=== PATIENT | female | born 1990 | race African-American/Black ===

== ENCOUNTER 2016-12-04 11:09 | Emergency (ER) | payer MEDICAID, OTHER ==
[2016-12-04 11:25] VITALS: BP 123/64
--- NOTE | 2016-12-04 11:59 | EDM.PDOC ---
ED HPI Trauma - General Chief Complaint: Lower Extremity Injury/Pain Stated Complaint: Right ankle injury Time Seen by Provider: 12/04/16 11:50 Source: Reports: Patient, RN notes reviewed History Limitations: Reports: No limitations - History of Present Illness INITIAL COMMENTS - FREE TEXT/NARRATIVE: 26 year old female presents to the ED with 1 week history of medial right ankle/foot pain and bruising. She slammed her foot in a car door about 1 week ago. She has continued pain that does not seem to be getting better. She is able to only partially bear weight due to pain. She has not taken any pain medications. No numbness or tingling. No additional injuries. OBGYN is Dr. Martinez. She is reportedly approximately 28 weeks gestation. Allergies/ADRs: Allergies No Known Allergies Allergy (Verified 12/04/16 11:25) Home Medications: Ambulatory Orders . 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: Social & Family History - Family History Family Medical History: Noncontributory - Tobacco Use Smoking Status *Q: Never Smoker Used Tobacco, but Quit: Yes Month Tobacco Last Used: 3 years ago Second Hand Smoke Exposure: No - Caffeine Use Caffeine Use: Reports: None - Recreational Drug Use Recreational Drug Use: No Recreational Drug Type: Reports: Marijuana/Hashish Recreational Drug Use Frequency: Monthly Recreational Drug Last Use: 3 weeks ago - Living Situation & Occupation Living situation: Reports: single Occupation: unemployed Review of Systems - Review of Systems Review Of Systems: See Below Musculoskeletal: Reports: foot pain, joint pain Skin: Reports: bruising Neurological: Reports: No Symptoms. Denies: Numbness, Tingling, Weakness Trauma Exam - Physical Exam Exam: See Below Exam Limited By: No limitations General Appearance: Reports: alert, WD/WN, no apparent distress Respiratory Exam: Reports: no respiratory distress, lungs clear Cardiovascular: Reports: regular rate, rhythm Extremities: Reports: bony-point tenderness (medial malleolous and mid-foot), pain with movement, unable to bear weight, other (bruising to medial malleolous and medial mid-foot) Neurologic: Reports: no motor/sensory deficits, alert Course - Vital Signs Last Recorded V/S: Last Vital Signs Temp 97.7 F 12/04/16 11:21 Pulse 71 12/04/16 11:21 Resp 18 12/04/16 11:21 BP 123/64 12/04/16 11:21 Pulse Ox 98 12/04/16 11:21 - Orders/Labs/Meds Orders: Active Orders 24 hr Category Date Time Status Ankle Min 3V Rt [CR] Stat Exams 12/04/16 11:58 Taken Foot 2V Rt [CR] Stat Exams 12/04/16 11:59 Taken - Re-Assessments/Exams Free Text/Narrative Re-Assessment/Exam: Discussed risk versus benefit of x-rays considering the patient is . She elected to have x-rays. senior environmental technician notified and will take appropriate precautions. X-rays of the right foot and ankle reviewed by myself and Dr. Kendrick. No acute bony abnormalities appreciated. Radiologist report pending. Departure - Departure Time of Disposition: 12:16 Disposition: Home, Self-Care 01 Condition: good Clinical Impression: Foot contusion Qualifiers: Encounter type: initial encounter Laterality: right Qualified Code(s): S90.31XA - Contusion of right foot, initial encounter Ankle contusion Qualifiers: Encounter type: initial encounter Laterality: right Qualified Code(s): S90.01XA - Contusion of right ankle, initial encounter Instructions: Contusion, [id number] Referrals: Franki Martinez MD [Primary Care Provider] - Forms: ED Department Discharge Additional Instructions: Rest, ice and elevate Tylenol 650mg every 4-6 hours as needed for pain Follow-up in our [facility] this week for recheck Weight bearing as tolerated - My Orders Last 24 Hours: My Active Orders 12/04/16 11:58 Ankle Min 3V Rt [CR] Stat 12/04/16 11:59 Foot 2V Rt [CR] Stat - Assessment/Plan Last 24 Hours: My Active Orders 12/04/16 11:58 Ankle Min 3V Rt [CR] Stat 12/04/16 11:59 Foot 2V Rt [CR] Stat
--- NOTE | 2016-12-05 10:34 | CR ---
Right foot: Two views of the right foot were obtained. Comparison: No previous foot study. Joint spaces are preserved. No calcaneal spurs are seen. No fracture or other abnormality is appreciated. Impression: 1. No abnormality is identified on two-view right foot study. Diagnostic code #1
--- NOTE | 2016-12-05 10:34 | CR ---
Right ankle: Four views of the right ankle were obtained. Comparison: No previous study. Ankle mortise is symmetric. Mild soft tissue swelling is seen. No acute fracture or other abnormality is appreciated. Impression: 1. Soft tissue swelling. No bony abnormality is identified on right ankle exam. Diagnostic code #2
== END 2016-12-04 12:48 | disposition home or self-care (01) ==
LOC: JD.ED 11:09
DX: O9A.213 Injury, poisoning and certain other consequences of external causes complicating pregnancy, third trimester (principal); S90.31XA Contusion of right foot, initial encounter; S90.01XA Contusion of right ankle, initial encounter; Z87.891 Personal history of nicotine dependence; W22.8XXA Striking against or struck by other objects, initial encounter; Z3A.28 28 weeks gestation of pregnancy
CPT/HCPCS: 73610-26-RT; 73610-RT; 73620-26-RT; 73620-RT; 99282; 99283; 99284

== ENCOUNTER 2017-02-19 08:07 | Inpatient (IN) | payer MEDICAID, SELFPAY ==
[2017-02-19] MEDS ORDERED: Sodium Chloride 0.9% 10 ML Syringe FLUSH PRN (08:18)
[2017-02-19] MEDS ORDERED: Nalbuphine 20 MG/1 ML Amp IVPUSH PRN (08:18)
[2017-02-19] MEDS ORDERED: Ondansetron 4 MG/2 ML SDV IVPUSH PRN (08:18)
[2017-02-19] MEDS: Ampicillin 1 GM in Sodium Chloride 0.9% 100 ML IV SCH ×2 (08:30→09:00)
[2017-02-19] MEDS ORDERED: Lactated Ringers 1,000 ML IV SCH (08:30)
[2017-02-19] MEDS ORDERED: Ampicillin 1 GM in Sodium Chloride 0.9% 100 ML IV SCH ×2 (08:30→12:30)
[2017-02-19] MEDS ORDERED: Oxytocin/Lactated Ringers 10 UNIT/1,000 ML BAG IV SCH (08:30)
--- NOTE | 2017-02-19 08:58 | PCM.LDHP ---
L&D History of Present Illness - General Date of Service: 02/19/17 Admit Problem/Dx: Patient Status Order with Admit Dx/Problem 02/19/17 08:18 Patient Status [ADT] Routine Admission Diagnosis/Problem Admission Diagnosis/Problem Normal labor - History of Present Illness Introduction:: Called at 8:33 by RN to notify me patient arrived and ready for delivery. Rapid shortly after my arrival for this female at 39w1. - Related Data Allergies/Adverse Reactions: Allergies Allergy/AdvReac Type Severity Reaction Status Date / Time No Known Allergies Allergy Verified 02/19/17 08:18 Home Medications: Home Meds . 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: Social & Family History - Family History Family Medical History: Noncontributory - Tobacco Use Smoking Status *Q: Never Smoker Used Tobacco, but Quit: Yes Month Tobacco Last Used: 3 years ago Second Hand Smoke Exposure: No - Caffeine Use Caffeine Use: Reports: None - Recreational Drug Use Recreational Drug Use: No Recreational Drug Type: Reports: Marijuana/Hashish Recreational Drug Use Frequency: Monthly Recreational Drug Last Use: 3 weeks ago - Living Situation & Occupation Living situation: Reports: Single Occupation: Unemployed H&P Review of Systems - Review of Systems: Review Of Systems: See Below General: Reports: No Symptoms HEENT: Reports: No Symptoms Pulmonary: Reports: No Symptoms Cardiovascular: Reports: No Symptoms Gastrointestinal: Reports: No Symptoms Genitourinary: Reports: No Symptoms Musculoskeletal: Reports: No Symptoms Skin: Reports: No Symptoms Psychiatric: Reports: No Symptoms Neurological: Reports: No Symptoms Hematologic/Lymphatic: Reports: No Symptoms Immunologic: Reports: No Symptoms L&D Exam - Exam Exam: See Below - Vital Signs Weight: 77.111 kg - OB Specific Contraction Intensity: Moderate Movement: Active Heart Tones: Present Heart Rate (FHR) Variability: Moderate (6-25 bmp) Presentation: Vertex - Davison Score Davison Score Effacement: >80% Davison Score Dilation: > 5 cm - Exam General: Alert, Oriented HEENT: PERRLA, Conjunctiva Clear, EACs Clear, EOMI, Hearing Intact, Mucosa Moist & [place], Nares Patent, Normal Nasal Septum, Posterior Pharynx Clear, TMs Clear Neck: Supple, Trachea Midline Lungs: Clear to Auscultation, Normal Respiratory Effort Cardiovascular: Regular Rate, Regular Rhythm GI/Abdominal Exam: Normal Bowel Sounds, Soft, Non-Tender, No Organomegaly, No Distention, No Abnormal Bruit, No Mass, Pelvis Stable Rectal Exam: Normal Exam, Normal Rectal Tone Genitourinary: Normal external exam, Normal bimanual exam, Normal speculum exam Back Exam: Normal Inspection, Full Range of Motion Extremities: Normal Inspection, Normal Range of Motion, Non-Tender, No Pedal Edema, Normal Capillary Refill Skin: Warm, Dry, Intact Neurological: Cranial Nerves Intact, Reflexes Equal Bilateral Psychiatric: Alert, Normal Affect, Normal Mood - Patient Data Lab Results Last 24 hrs: Laboratory Results - last 24 hr 02/19/17 Range/Units 08:30 WBC 9.78 (3.98-10.04) K/mm3 RBC 4.59 (3.98-5.22) M/mm3 Hgb 13.3 (11.2-15.7) gm/L Hct 40.0 (34.1-44.9) % MCV 87.1 (79.4-94.8) fl MCH 29.0 (25.6-32.2) pg MCHC 33.3 (32.2-35.5) g/dl RDW Std Deviation 42.9 (36.4-46.3) fL Plt Count 201 (182-369) K/mm3 MPV 10.5 (9.4-12.3) fl Neut % (Auto) 69.4 (34.0-71.1) % Lymph % (Auto) 20.8 (19.3-51.7) % [place] % (Auto) 9.2 (4.7-12.5) % Eos % (Auto) 0.2 L (0.7-5.8) Baso % (Auto) 0.1 (0.1-1.2) % Neut # (Auto) 6.79 H (1.56-6.13) K/mm3 Lymph # (Auto) 2.03 (1.18-3.74) K/mm3 [place] # (Auto) 0.90 H (0.24-0.36) K/mm3 Eos # (Auto) 0.02 L (0.04-0.36) K/mm3 Baso # (Auto) 0.01 (0.01-0.08) K/mm3 Result Diagrams: 02/19/17 08:30 Problem List Initiated/Reviewed/Updated: Yes Orders Last 24hrs: Active Orders 24 hr Category Date Time Status Patient Status [ADT] Routine ADT 02/19/17 08:18 Active Activity as Tolerated [RC] PFP Care 02/19/17 08:18 Active Communication Order [RC] ASDIRECTED Care 02/19/17 08:18 Active Heart Tones [RC] ASDIRECTED Care 02/19/17 08:19 Active Notify Provider [RC] PFP Care 02/19/17 08:18 Active Notify Provider [RC] PRN Care 02/19/17 08:18 Active Peripheral IV Care [RC] . DIRECTED Care 02/19/17 08:19 Active Vital Signs [RC] PER UNIT ROUTINE Care 02/19/17 08:18 Active Ampicillin 1 gm Med 02/19/17 08:30 Active Sodium Chloride 0.9% [Normal Saline] 100 ml IV Q15M Ampicillin 1 gm Med 02/19/17 12:30 Active Sodium Chloride 0.9% [Normal Saline] 100 ml IV Q4H Lactated Ringers [Ringers, Lactated] 1,000 ml Med 02/19/17 08:30 Active IV ASDIRECTED Nalbuphine [Nubain] Med 02/19/17 08:18 Active 10 mg IVPUSH Q2H PRN Ondansetron [Zofran] Med 02/19/17 08:18 Active 4 mg IVPUSH Q4H PRN Oxytocin/Lactated Ringers [Pitocin in LR 10 Units/1,000 Med 02/19/17 08:30 Active ML] 10 unit in 1,000 ml IV .CONTINUOUS Sodium Chloride 0.9% [Saline Flush] Med 02/19/17 08:18 Active 10 ml FLUSH ASDIRECTED PRN Electronic Heart Tones Ext w TOCO [WOMSER] Oth 02/19/17 08:18 Ordered Routine Electronic Heart Tones Internal [WOMSER] Per Unit Ot 02/19/17 08:18 Ordered Routine Peripheral IV Insertion Adult [OM.PC] Routine Oth 02/19/17 08:18 Ordered Resuscitation Status Routine Resus Stat 02/19/17 08:18 Ordered Medication Orders Lactated Ringer's (Ringers, Lactated) 1,000 mls @ 100 mls/hr IV ASDIRECTED YOUNG Oxytocin/Lactated Ringer's (Pitocin In Lr 10 Units/1,000 Ml) 10 unit in 1,000 mls @ 500 mls/hr IV .CONTINUOUS YOUNG PRN Reason: Protocol Ampicillin Sodium 1 gm/ Sodium (Chloride) 100 mls @ 200 mls/hr IV Q15M YOUNG Stop: 02/19/17 08:59 Ampicillin Sodium 1 gm/ Sodium (Chloride) 100 mls @ 200 mls/hr IV Q4H YOUNG Nalbuphine HCl (Nubain) 10 mg IVPUSH Q2H PRN PRN Reason: Pain (moderate 4-6) Ondansetron HCl (Zofran) 4 mg IVPUSH Q4H PRN PRN Reason: Nausea/Vomiting Sodium Chloride (Saline Flush) 10 ml FLUSH ASDIRECTED PRN PRN Reason: Keep Vein Open Assessment/Plan Comment:: Precipitous . GBS positive s/p one dose antibiotics. Doing well.
[2017-02-19] MEDS ORDERED: Docusate Sodium 100 MG Cap PO PRN (09:15)
[2017-02-19] MEDS ORDERED: Lanolin 100% Cream 7 GM Tube TOP PRN (09:15)
[2017-02-19] MEDS ORDERED: Benzocaine/Menthol 20%-0.5% Spray 56 GM Canister TOP PRN (09:15)
[2017-02-19] MEDS ORDERED: Witch Hazel Medicated Pads 100/Jar TOP PRN (09:15)
[2017-02-19] MEDS ORDERED: Diphtheria,Pertussis(Acell),Tetanus Vaccine 0.5 ML SDV IM ONE (13:43)
[2017-02-19] MEDS: Ibuprofen 600 MG Tab PO PRN ×2 (15:06→20:50)
--- NOTE | 2017-02-21 09:06 | PCM.PNPP ---
- General Info Date of Service: 02/20/17 Functional Status: Reports: Pain Controlled - Review of Systems General: Reports: No Symptoms HEENT: Reports: No Symptoms Pulmonary: Reports: No Symptoms Cardiovascular: Reports: No Symptoms Gastrointestinal: Reports: No Symptoms Genitourinary: Reports: No Symptoms Musculoskeletal: Reports: No Symptoms Skin: Reports: No Symptoms Neurological: Reports: No Symptoms Psychiatric: Reports: No Symptoms - General Info Date of Service: 02/20/17 - Patient Data Vital Signs - Most Recent: Last Vital Signs Temp 37.2 C 02/21/17 02:22 Pulse 59 L 02/21/17 02:22 Resp 16 02/21/17 02:22 BP 139/72 02/21/17 02:22 Pulse Ox 97 02/21/17 02:22 Weight - Most Recent: 77.111 kg I&O - Last 24 Hours: Intake & Output 02/20/17 02/21/17 02/21/17 22:59 06:59 14:59 Intake Total 360 Balance 360 Med Orders - Current: Current Medications Benzocaine/Menthol (Dermoplast Pain Relief [place]) 0 gm TOP ASDIRECTED PRN PRN Reason: Perineal Comfort Measure Docusate Sodium (Colace) 100 mg PO BID PRN PRN Reason: Constipation Emollient Ointment (Lansinoh Hpa) 0 gm TOP ASDIRECTED PRN PRN Reason: Sore Nipples Ibuprofen (Motrin) 600 mg PO Q6H PRN PRN Reason: Mild pain or fever Last Admin: 02/19/17 20:50 Dose: 600 mg Witch [place] (Tucks) 1 pad TOP ASDIRECTED PRN PRN Reason: Hemorrhoid pain Discontinued Medications Diphtheria/Tetanus/Acell Pertussis (Adacel) 0.5 ml IM .ONCE ONE Stop: 02/19/17 13:44 Last Admin: 02/20/17 13:35 Dose: 0.5 ml Ampicillin Sodium 1 gm/ Sodium (Chloride) 100 mls @ 200 mls/hr IV Q4H YOUNG Lactated Ringer's (Ringers, Lactated) 1,000 mls @ 100 mls/hr IV ASDIRECTED YOUNG Last Admin: 02/19/17 10:00 Dose: 100 mls/hr Oxytocin/Lactated Ringer's (Pitocin In Lr 10 Units/1,000 Ml) 10 unit in 1,000 mls @ 500 mls/hr IV .CONTINUOUS YOUNG PRN Reason: Protocol Last Admin: 02/19/17 10:01 Dose: 500 mls/hr Ampicillin Sodium 1 gm/ Sodium (Chloride) 100 mls @ 200 mls/hr IV Q15M YOUNG Stop: 02/19/17 08:59 Last Admin: 02/19/17 09:00 Dose: 200 mls/hr Ampicillin Sodium 1 gm/ Sodium (Chloride) 100 mls @ 200 mls/hr IV Q4H YOUNG Nalbuphine HCl (Nubain) 10 mg IVPUSH Q2H PRN PRN Reason: Pain (moderate 4-6) Ondansetron HCl (Zofran) 4 mg IVPUSH Q4H PRN PRN Reason: Nausea/Vomiting Sodium Chloride (Saline Flush) 10 ml FLUSH ASDIRECTED PRN PRN Reason: Keep Vein Open - Infant Interaction Disposition, : [place] at Bedside Support Person: Significant Other - Recovery Exam Fundal Tone: Firm Fundal Level: 1 Fingerbreadths Below Umbilicus Fundal Placement: Midline Lochia Amount: Small Lochia Color: Rubra/Red Perineum Description: Intact, Minimal Bruising/Swelling Episiotomy/Laceration: None Bladder Status: Voiding Urinary Elimination: Voided - Exam General: Alert, Oriented HEENT: Pupils Equal Neck: Supple Lungs: Clear to Auscultation, Normal Respiratory Effort Cardiovascular: Regular Rate, Regular Rhythm GI/Abdominal Exam: Normal Bowel Sounds, Soft, Non-Tender, No Organomegaly, No Distention, No Abnormal Bruit, No Mass, Pelvis Stable Extremities: Normal Inspection, Normal Range of Motion, No Pedal Edema, Normal Capillary Refill Skin: Warm, Dry, Intact Wound/Incisions: Healing Well Neurological: No New Focal Deficit Psy/Mental Status: Alert, Normal Affect, Normal Mood - Problem List Review Problem List Initiated/Reviewed/Updated: Yes - My Orders Last 24 Hours: My Active Orders 02/20/17 08:12 Consult to Reconcilement Clerk [CONS] Routine 02/20/17 09:15 Heat Therapy [OM.PC] PRN 02/21/17 09:04 Ready for Discharge [RC] PER UNIT ROUTINE - Assessment Assessment:: Term delivery. GBS positive so home tomorrow. - Plan Plan:: Precipitous . GBS positive s/p one dose antibiotics. Doing well.
--- NOTE | 2017-02-21 09:07 | PCM.DCSUM1 ---
Discharge Summary - Discharge Data Discharge Date: 02/21/17 Discharge Disposition: Home, Self-Care 01 Condition: Good - Patient Summary/Data Consults: Consultations 02/20/17 08:12 Consult to Manager Nursing [CONS] Routine - Patient Instructions Diet: Usual Diet as Tolerated Activity: No Strenuous Activities Driving: May Drive Today Showering/Bathing: May Shower Wound/Incision Care: Keep Operative Site/Wound Site Clean and Dry Notify Provider of: Fever, Increased Pain, Swelling and Redness, Drainage, Nausea and/or Vomiting - Discharge Plan Home Medications: Home Meds . [No Known Home Meds] 12/04/16 [History] - Discharge Summary/Plan Comment DC Time >30 min.: No - General Info Date of Service: 02/21/17 Functional Status: Reports: Pain Controlled - Review of Systems General: Reports: No Symptoms HEENT: Reports: No Symptoms Pulmonary: Reports: No Symptoms Cardiovascular: Reports: No Symptoms Gastrointestinal: Reports: No Symptoms Genitourinary: Reports: No Symptoms Musculoskeletal: Reports: No Symptoms Skin: Reports: No Symptoms Neurological: Reports: No Symptoms Psychiatric: Reports: No Symptoms - Patient Data Vitals - Most Recent: Last Vital Signs Temp 37.2 C 02/21/17 02:22 Pulse 59 L 02/21/17 02:22 Resp 16 02/21/17 02:22 BP 139/72 02/21/17 02:22 Pulse Ox 97 02/21/17 02:22 Weight - Most Recent: 77.111 kg I&O - Last 24 hours: Intake & Output 02/20/17 02/21/17 02/21/17 22:59 06:59 14:59 Intake Total 360 Balance 360 Med Orders - Current: Current Medications Benzocaine/Menthol (Dermoplast Pain Relief [place]) 0 gm TOP ASDIRECTED PRN PRN Reason: Perineal Comfort Measure Docusate Sodium (Colace) 100 mg PO BID PRN PRN Reason: Constipation Emollient Ointment (Lansinoh Hpa) 0 gm TOP ASDIRECTED PRN PRN Reason: Sore Nipples Ibuprofen (Motrin) 600 mg PO Q6H PRN PRN Reason: Mild pain or fever Last Admin: 02/19/17 20:50 Dose: 600 mg Witch [place] (Tucks) 1 pad TOP ASDIRECTED PRN PRN Reason: Hemorrhoid pain Discontinued Medications Diphtheria/Tetanus/Acell Pertussis (Adacel) 0.5 ml IM .ONCE ONE Stop: 02/19/17 13:44 Last Admin: 02/20/17 13:35 Dose: 0.5 ml Ampicillin Sodium 1 gm/ Sodium (Chloride) 100 mls @ 200 mls/hr IV Q4H YOUNG Lactated Ringer's (Ringers, Lactated) 1,000 mls @ 100 mls/hr IV ASDIRECTED [facility] Last Admin: 02/19/17 10:00 Dose: 100 mls/hr Oxytocin/Lactated Ringer's (Pitocin In Lr 10 Units/1,000 Ml) 10 unit in 1,000 mls @ 500 mls/hr IV .CONTINUOUS YOUNG PRN Reason: Protocol Last Admin: 02/19/17 10:01 Dose: 500 mls/hr Ampicillin Sodium 1 gm/ Sodium (Chloride) 100 mls @ 200 mls/hr IV Q15M [facility] Stop: 02/19/17 08:59 Last Admin: 02/19/17 09:00 Dose: 200 mls/hr Ampicillin Sodium 1 gm/ Sodium (Chloride) 100 mls @ 200 mls/hr IV Q4H [facility] Nalbuphine HCl (Nubain) 10 mg IVPUSH Q2H PRN PRN Reason: Pain (moderate 4-6) Ondansetron HCl (Zofran) 4 mg IVPUSH Q4H PRN PRN Reason: Nausea/Vomiting Sodium Chloride (Saline Flush) 10 ml FLUSH ASDIRECTED PRN PRN Reason: Keep Vein Open - Exam General: Reports: Alert, Oriented HEENT: Reports: Pupils Equal, Pupils Reactive, EOMI, Mucous Membr. Moist/[place] Neck: Reports: Supple Lungs: Reports: Clear to Auscultation, Normal Respiratory Effort Cardiovascular: Reports: Regular Rate, Regular Rhythm GI/Abdominal Exam: Normal Bowel Sounds, Soft, Non-Tender, No Organomegaly, No Distention, No Abnormal Bruit, No Mass, Pelvis Stable Rectal (Female) Exam: Normal Exam, Normal Rectal Tone Back Exam: Reports: Normal Inspection, Full Range of Motion Extremities: Normal Inspection, Normal Range of Motion, Non-Tender, No Pedal Edema, Normal Capillary Refill Skin: Reports: Warm, Dry, Intact Wound/Incisions: Reports: Healing Well Neurological: Reports: No New Focal Deficit Psy/Mental Status: Reports: Alert, Normal Affect, Normal Mood *Q Meaningful Use (DIS) - VTE *Q VTE Criteria *Q: - Stroke *Q Stroke Criteria *Q: - AMI *Q AMI Criteria *Q:
[2017-02-21 10:05] VITALS: BP 123/68
== END 2017-02-21 10:45 | disposition home or self-care (01) | DRG 775 ==
LOC: JD.OBCHECK 08:07 → JD.OB 08:09 → JD.OBCHECK 08:17 → JD.OB 08:18 → OBSVTOIN 08:43 → JD.OB 08:43
PROVIDERS: ADMIT Obstetrics & Gynecology; ATTEND Obstetrics & Gynecology
PROC: 10E0XZZ Delivery of Products of Conception, External Approach (ICD-10-PCS; principal; 2017-02-19)
PROC: 0W8NXZZ Division of Female Perineum, External Approach (ICD-10-PCS; 2017-02-19)
PROC: 3E0234Z Introduction of Serum, Toxoid and Vaccine into Muscle, Percutaneous Approach (ICD-10-PCS; 2017-02-20)
DX: O62.3 Precipitate labor (principal); O99.824 Streptococcus B carrier state complicating childbirth; Z3A.39 39 weeks gestation of pregnancy; Z37.0 Single live birth; Z23 Encounter for immunization
CPT/HCPCS: 36415; 85025; 90715; A9270-GY; J0290; J2590; J7030; J7120

== ENCOUNTER 2018-04-11 10:28 | Emergency (ER) | payer MEDICAID ==
[2018-04-11 10:48] VITALS: BP 121/71
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
== END 2018-04-11 13:11 | disposition home or self-care (01) ==
LOC: JD.ED 10:28
DX: O26.91 Pregnancy related conditions, unspecified, first trimester (principal); R10.9 Unspecified abdominal pain; Z3A.01 Less than 8 weeks gestation of pregnancy
CPT/HCPCS: 36415; 80053; 81001; 81025; 85007; 85027; 86140; 99283

== ENCOUNTER 2018-10-20 10:23 | Inpatient (IN) | payer MEDICAID ==
[~2018-10-20 10:23] MED LIST: Bupivacaine 0.25% 10 ML SDV ONE
[2018-10-20] MEDS ORDERED: Ondansetron 4 MG/2 ML SDV IVPUSH PRN (10:54)
[2018-10-20] MEDS ORDERED: Ampicillin 2 GM in Sodium Chloride 0.9% 100 ML IV ONE (10:54)
[2018-10-20] MEDS ORDERED: Lidocaine 1% 50 ML MDV INJECT ONE (10:54)
[2018-10-20] MEDS ORDERED: Sodium Chloride 0.9% 10 ML Syringe FLUSH PRN (10:54)
[2018-10-20] MEDS ORDERED: Nalbuphine 20 MG/ML 1 ML Syringe IVPUSH PRN (10:54)
[2018-10-20] MEDS ORDERED: Oxytocin/Lactated Ringers 10 UNIT/1,000 ML BAG IV SCH ×2 (11:00)
[2018-10-20] MEDS: Lactated Ringers 1,000 ML IV SCH ×4 (12:02→15:21)
--- NOTE | 2018-10-20 12:13 | PCM.LDHP ---
L&D History of Present Illness - General Date of Service: 10/20/18 Admit Problem/Dx: Patient Status Order with Admit Dx/Problem 10/20/18 10:55 Patient Status [ADT] Routine Admission Diagnosis/Problem Admission Diagnosis/Problem Source of Information: Patient History Limitations: Reports: No Limitations - History of Present Illness Introduction:: 28 year old female at 39w1d here with painful contractions. Cervix 5 cm. Improves with: Reports: None Worsens with: Reports: None Associated Symptoms: Reports: N - Related Data Allergies/Adverse Reactions: Allergies Allergy/AdvReac Type Severity Reaction Status Date / Time No Known Allergies Allergy Verified 10/20/18 11:27 Home Medications: Home Meds Albuterol Sulfate [Albuterol Sulfate Hfa] 1 puff INH Q4H PRN 10/20/18 [History] Vits #93/Iron Fum/FA [ Formula Tablet] 1 tab PO DAILY 10/20/18 [History] Past Medical History - Past Health History Medical/Surgical History: Denies Medical/Surgical History Respiratory History: Reports: Asthma Other Respiratory History: uses albuterol inhaler 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: - Past Surgical History HEENT Surgical History: Reports: Oral Surgery, Tonsillectomy Social & Family History - Family History Family Medical History: Noncontributory - Tobacco Use Smoking Status *Q: Former Smoker Used Tobacco, but Quit: Yes Month/Year Tobacco Last Used: 06/2017 - Caffeine Use Caffeine Use: Reports: Coffee, Soda - Recreational Drug Use Recreational Drug Use: No - Living Situation & Occupation Living situation: Reports: Single Occupation: Unemployed H&P Review of Systems - Review of Systems: Review Of Systems: See Below General: Reports: No Symptoms HEENT: Reports: No Symptoms Pulmonary: Reports: No Symptoms Cardiovascular: Reports: No Symptoms Gastrointestinal: Reports: No Symptoms Genitourinary: Reports: No Symptoms Musculoskeletal: Reports: No Symptoms Skin: Reports: No Symptoms Psychiatric: Reports: No Symptoms Neurological: Reports: No Symptoms Hematologic/Lymphatic: Reports: No Symptoms Immunologic: Reports: No Symptoms L&D Exam - Exam Exam: See Below - Vital Signs Vital Signs: Last Vital Signs Temp 36.6 C 10/20/18 10:54 Pulse 82 10/20/18 10:54 Resp 18 10/20/18 10:54 BP 138/74 10/20/18 10:54 Pulse Ox Weight: 96.071 kg - OB Specific Fundal Height In cm: 39 Contraction Intensity: Mild to Moderate Movement: Active Heart Tones: Present Heart Tones per Min: 155 Heart Rate (FHR) Variability: Moderate (6-25 bmp) Presentation: Vertex - Davison Score Davison Score Cervix Position: Midposition Davison Score Consistency: Medium Davison Score Effacement: >80% Davison Score Dilation: 3-4 cm Davison Score Infant's Station: -2 Davison Score Total: 8 - Exam General: Alert, Oriented HEENT: PERRLA, Conjunctiva Clear, EACs Clear, EOMI, Hearing Intact, Mucosa Moist & [place], Nares Patent, Normal Nasal Septum, Posterior Pharynx Clear, TMs Clear Neck: Supple, Trachea Midline Lungs: Clear to Auscultation, Normal Respiratory Effort Cardiovascular: Regular Rate, Regular Rhythm GI/Abdominal Exam: Normal Bowel Sounds, Soft, Non-Tender, No Organomegaly, No Distention, No Abnormal Bruit, No Mass, Pelvis Stable Rectal Exam: Normal Exam Back Exam: Normal Inspection, Full Range of Motion Extremities: Normal Inspection, Normal Range of Motion, Non-Tender, No Pedal Edema, Normal Capillary Refill Skin: Warm, Dry, Intact Neurological: Cranial Nerves Intact, Reflexes Equal Bilateral Psychiatric: Alert, Normal Affect, Normal Mood - Patient Data Lab Results Last 24 hrs: Laboratory Results - last 24 hr 10/20/18 10/20/18 Range/Units 11:20 11:26 WBC 12.09 H (3.98-10.04) K/mm3 RBC 4.29 (3.98-5.22) M/mm3 Hgb 11.6 (11.2-15.7) gm/L Hct 36.7 (34.1-44.9) % MCV 85.5 (79.4-94.8) fl MCH 27.0 (25.6-32.2) pg MCHC 31.6 L (32.2-35.5) g/dl RDW Std Deviation 42.4 (36.4-46.3) fL Plt Count 196 (182-369) K/mm3 MPV 10.4 (9.4-12.3) fl Neut % (Auto) 75.2 H (34.0-71.1) % Lymph % (Auto) 13.4 L (19.3-51.7) % [place] % (Auto) 10.7 (4.7-12.5) % Eos % (Auto) 0.2 L (0.7-5.8) Baso % (Auto) 0.1 (0.1-1.2) % Neut # (Auto) 9.10 H (1.56-6.13) K/mm3 Lymph # (Auto) 1.62 (1.18-3.74) K/mm3 [place] # (Auto) 1.29 H (0.24-0.36) K/mm3 Eos # (Auto) 0.02 L (0.04-0.36) K/mm3 Baso # (Auto) 0.01 (0.01-0.08) K/mm3 Urine Opiates Screen Negative (FQBDPR=660) Ur Buprenorphine Scrn Negative (CUTOFF=10) Ur Oxycodone Screen Negative (APT6RM=589) Urine Methadone Screen Negative (NIXDLH=105) Ur Propoxyphene Screen Negative (WXPSZA=538) Ur Barbiturates Screen Negative (TKFUZO=308) Ur Tricyclics Screen Negative (XMNDPM=944) Ur Phencyclidine Scrn Negative (CUTOFF=25) Ur Amphetamine Screen Negative (RPJMKB=099) U Methamphetamines Scrn Negative (IBZILU=012) U Benzodiazepines Scrn Negative (XKEPSL=847) U Cocaine Metab Screen Negative (RMQJJK=748) U Marijuana (THC) Screen Presumptive positive H (CUTOFF=50) Result Diagrams: 10/20/18 11:26 Problem List Initiated/Reviewed/Updated: Yes Orders Last 24hrs: Active Orders 24 hr Category Date Time Status Patient Status [ADT] Routine ADT 10/20/18 10:55 Active Activity as Tolerated [RC] PFP Care 10/20/18 10:54 Active Communication Order [RC] ASDIRECTED Care 10/20/18 10:54 Active Heart Tones [RC] ASDIRECTED Care 10/20/18 10:55 Active Non Stress Test [RC] PER UNIT ROUTINE Care 10/20/18 10:54 Active Notify Provider [RC] PFP Care 10/20/18 10:54 Active Notify Provider [RC] PRN Care 10/20/18 10:54 Active Peripheral IV Care [RC] . DIRECTED Care 10/20/18 10:55 Active Vital Signs [RC] PER UNIT ROUTINE Care 10/20/18 10:54 Active Regular Diet [DIET] Diet 10/20/18 Lunch Active CANNABINOID (THC) CONFIRM, UR Stat Lab 10/20/18 11:20 Received RAPID PLASMA REAGIN,RPR [CHEM] Routine Lab 10/20/18 11:26 Received Ampicillin 1 gm Med 10/20/18 15:00 Active Sodium Chloride 0.9% [Normal Saline] 100 ml IV Q4H Lactated Ringers [Ringers, Lactated] 1,000 ml Med 10/20/18 11:00 Active IV ASDIRECTED Nalbuphine [Nubain] Med 10/20/18 10:54 Active 10 mg IVPUSH Q2H PRN Ondansetron [Zofran] Med 10/20/18 10:54 Active 4 mg IVPUSH Q4H PRN Oxytocin/Lactated Ringers [Pitocin in LR 10 Units/1,000 Med 10/20/18 11:00 Active ML] 10 unit in 1,000 ml IV .CONTINUOUS Oxytocin/Lactated Ringers [Pitocin in LR 10 Units/1,000 Med 10/20/18 11:00 Active ML] 10 unit in 1,000 ml IV TITRATE Sodium Chloride 0.9% [Saline Flush] Med 10/20/18 10:54 Active 10 ml FLUSH ASDIRECTED PRN Electronic Heart Tones Ext w TOCO [WOMSER] Oth 10/20/18 10:54 Ordered Routine Electronic Heart Tones Internal [WOMSER] Per Unit Oth 10/20/18 10:54 Ordered Routine Peripheral IV Insertion Adult [OM.PC] Routine Oth 10/20/18 10:54 Ordered Resuscitation Status Routine Resus Stat 10/20/18 10:54 Ordered Medication Orders Ampicillin Sodium 1 gm/ Sodium (Chloride) 100 mls @ 200 mls/hr IV Q4H YOUNG Lactated Ringer's (Ringers, Lactated) 1,000 mls @ 100 mls/hr IV ASDIRECTED YOUNG Last Admin: 10/20/18 12:02 Dose: 100 mls/hr Oxytocin/Lactated Ringer's (Pitocin In Lr 10 Units/1,000 Ml) 10 unit in 1,000 mls @ 500 mls/hr IV .CONTINUOUS YOUNG Oxytocin/Lactated Ringer's (Pitocin In Lr 10 Units/1,000 Ml) 10 unit in 1,000 mls @ 12 mls/hr IV TITRATE YOUNG; Protocol Nalbuphine HCl (Nubain) 10 mg IVPUSH Q2H PRN PRN Reason: pain Ondansetron HCl (Zofran) 4 mg IVPUSH Q4H PRN PRN Reason: Nausea/Vomiting Sodium Chloride (Saline Flush) 10 ml FLUSH ASDIRECTED PRN PRN Reason: Keep Vein Open Assessment/Plan Comment:: Term labor. GBS positive. AROM clear fluid. Anticipate . Prior rapid labors
[2018-10-20] MEDS ORDERED: diphenhydrAMINE 50 MG/ML SDV IVPUSH PRN (14:05)
[2018-10-20] MEDS ORDERED: fentaNYL 100 MCG/2 ML SDV EPIDUR PRN (14:05)
[2018-10-20] MEDS ORDERED: ePHEDrine 50 MG/ML SDV IVPUSH PRN (14:05)
[2018-10-20] MEDS ORDERED: fentaNYL/Bupivacaine-NS 2 MCG/ML-0.125%/PF 100 ML Bag EPIDUR SCH (14:15)
--- NOTE | 2018-10-20 14:36 | PCM.PREANE ---
Preanesthetic Assessment - Anesthesia/Transfusion/Family Hx Anesthesia History: Prior Anesthesia Without Reaction Family History of Anesthesia Reaction: No Transfusion History: No Prior Transfusion(s) - Review of Systems General: No Symptoms Pulmonary: No Symptoms Cardiovascular: No Symptoms Gastrointestinal: Abdominal Pain (contractions) - Physical Assessment Pulse: 84 O2 Sat by Pulse Oximetry: 99 Respiratory Rate: 18 Blood Pressure: 134/64 Temperature: 36.3 C Vital Signs: Last Vital Signs Temp 36.6 C 10/20/18 10:54 Pulse 82 10/20/18 10:54 Resp 18 10/20/18 10:54 BP 138/74 10/20/18 10:54 Pulse Ox Height: 1.63 m Weight: 96.071 kg ASA Class: 2 Mental Status: Alert & Oriented x3 Airway Class: Mallampati = 1 Dentition: Reports: Normal Dentition Thyro-Mental Finger Breadths: 3 Mouth Opening Finger Breadths: 3 ROM/Head Extension: Full Lungs: Clear to Auscultation, Normal Respiratory Effort Cardiovascular: Regular Rate, Regular Rhythm - Lab Values: Laboratory Last Values WBC 12.09 K/mm3 (3.98-10.04) H 10/20/18 11:26 RBC 4.29 M/mm3 (3.98-5.22) 10/20/18 11:26 Hgb 11.6 gm/L (11.2-15.7) 10/20/18 11:26 Hct 36.7 % (34.1-44.9) 10/20/18 11:26 MCV 85.5 fl (79.4-94.8) 10/20/18 11:26 MCH 27.0 pg (25.6-32.2) 10/20/18 11:26 MCHC 31.6 g/dl (32.2-35.5) L 10/20/18 11:26 RDW Std Deviation 42.4 fL (36.4-46.3) 10/20/18 11:26 Plt Count 196 K/mm3 (182-369) 10/20/18 11:26 MPV 10.4 fl (9.4-12.3) 10/20/18 11:26 Neut % (Auto) 75.2 % (34.0-71.1) H 10/20/18 11:26 Lymph % (Auto) 13.4 % (19.3-51.7) L 10/20/18 11: [place] % (Auto) 10.7 % (4.7-12.5) 10/20/18 11: Eos % (Auto) 0.2 (0.7-5.8) L 10/20/18 11: Baso % (Auto) 0.1 % (0.1-1.2) 10/20/18 11: Neut # (Auto) 9.10 K/mm3 (1.56-6.13) H 10/20/18 11: Lymph # (Auto) 1.62 K/mm3 (1.18-3.74) 10/20/18 11: [place] # (Auto) 1.29 K/mm3 (0.24-0.36) H 10/20/18 11: Eos # (Auto) 0.02 K/mm3 (0.04-0.36) L 10/20/18 11: Baso # (Auto) 0.01 K/mm3 (0.01-0.08) 10/20/18 11:26 Urine Opiates Screen Negative (QSRHHS=320) 10/20/18 11:20 Ur Buprenorphine Scrn Negative (CUTOFF=10) 10/20/18 11:20 Ur Oxycodone Screen Negative (XSB4LP=252) 10/20/18 11:20 Urine Methadone Screen Negative (BJVPTC=869) 10/20/18 11:20 Ur Propoxyphene Screen Negative (BOYHEJ=598) 10/20/18 11:20 Ur Barbiturates Screen Negative (BJBTDM=275) 10/20/18 11:20 Ur Tricyclics Screen Negative (HHNTBJ=913) 10/20/18 11:20 Ur Phencyclidine Scrn Negative (CUTOFF=25) 10/20/18 11:20 Ur Amphetamine Screen Negative (UNCVQO=924) 10/20/18 11:20 U Methamphetamines Scrn Negative (AWVTKZ=495) 10/20/18 11:20 U Benzodiazepines Scrn Negative (MMJQBN=077) 10/20/18 11:20 U Cocaine Metab Screen Negative (FLXGMO=078) 10/20/18 11:20 U Marijuana (THC) Screen Presumptive positive (CUTOFF=50) H 10/20/18 11:20 - Allergies Allergies/Adverse Reactions: Allergies Allergy/AdvReac Type Severity Reaction Status Date / Time No Known Allergies Allergy Verified 10/20/18 11:27 - Anesthesia Plan Pre-Op Medication Ordered: None - Acknowledgements Anesthesia Type Planned: Epidural Pt an Appropriate Candidate for the Planned Anesthesia: Yes Alternatives and Risks of Anesthesia Discussed w Pt/Guardian: Yes Pt/Guardian Understands and Agrees with Anesthesia Plan: Yes PreAnesthesia Questionnaire - Past Health History Medical/Surgical History: Denies Medical/Surgical History Respiratory History: Reports: Asthma Other Respiratory History: uses albuterol inhaler Gastrointestinal History: Reports: GERD 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: - Past Surgical History HEENT Surgical History: Reports: Oral Surgery, Tonsillectomy - SUBSTANCE USE Smoking Status *Q: Former Smoker Tobacco Use Within Last Twelve Months: No Recreational Drug Use History: No - HOME MEDS Home Medications: Home Meds Albuterol Sulfate [Albuterol Sulfate Hfa] 1 puff INH Q4H PRN 10/20/18 [History] Vits #93/Iron Fum/FA [ Formula Tablet] 1 tab PO DAILY 10/20/18 [History] - CURRENT (IN HOUSE) MEDS Current Meds: Current Medications Diphenhydramine HCl (Benadryl) 25 mg IVPUSH Q6H PRN PRN Reason: Itching Ephedrine Sulfate (Ephedrine Sulfate) 5 mg IVPUSH ASDIRECTED PRN PRN Reason: HYPOTENTSION Fentanyl (Sublimaze) 100 mcg EPIDUR Q3H PRN PRN Reason: Pain Last Admin: 10/20/18 14:29 Dose: 100 mcg Fentanyl/Bupivacaine HCl (Keexoudv-Ugngk-Wc 2 Mcg/Ml-0.125%) 100 ml EPIDUR ASDIRECTED [facility] Last Admin: 10/20/18 14:30 Dose: 100 ml Ampicillin Sodium 1 gm/ Sodium (Chloride) 100 mls @ 200 mls/hr IV Q4H YOUNG Lactated Ringer's (Ringers, Lactated) 1,000 mls @ 100 mls/hr IV ASDIRECTED [facility] Last Admin: 10/20/18 13:38 Dose: 100 mls/hr Oxytocin/Lactated Ringer's (Pitocin In Lr 10 Units/1,000 Ml) 10 unit in 1,000 mls @ 500 mls/hr IV .CONTINUOUS YOUNG Oxytocin/Lactated Ringer's (Pitocin In Lr 10 Units/1,000 Ml) 10 unit in 1,000 mls @ 12 mls/hr IV TITRATE YOUNG; Protocol Nalbuphine HCl (Nubain) 10 mg IVPUSH Q2H PRN PRN Reason: pain Ondansetron HCl (Zofran) 4 mg IVPUSH Q4H PRN PRN Reason: Nausea/Vomiting Sodium Chloride (Saline Flush) 10 ml FLUSH ASDIRECTED PRN PRN Reason: Keep Vein Open Discontinued Medications Ampicillin Sodium 2 gm/ Sodium (Chloride) 100 mls @ 200 mls/hr IV ONETIME ONE Stop: 10/20/18 11:23 Last Admin: 10/20/18 11:02 Dose: 200 mls/hr Lidocaine HCl (Xylocaine 1%) 50 ml INJECT ONETIME ONE Stop: 10/20/18 10:55
[2018-10-20] MEDS: Ampicillin 1 GM in Sodium Chloride 0.9% 100 ML IV SCH ×2 (14:37→18:42)
--- NOTE | 2018-10-20 19:10 | PCM.SN ---
- Free Text/Narrative Note: Stage I - Patient progressed in active labor at 6 cm dilated. Progressed slowly to complete with overall reassuring heart tones. Epidural for anesthesia with some decelerations after. Stage II - of viable male infant at 1853, weight 3260g, APGARS 8/9. Head delivered in a controlled manner over intact perineum, body and shoulders atraumatically. Short cord clamped and cut. Stage III - of intact placenta. 3vc. No laceration. eBL 300
[2018-10-20] MEDS ORDERED: Witch Hazel Medicated Pads 40/Jar TOP PRN (19:20)
[2018-10-20] MEDS ORDERED: Docusate Sodium 100 MG Cap PO PRN (19:20)
[2018-10-20] MEDS ORDERED: Lanolin 100% Cream 7 GM Tube TOP PRN (19:20)
[2018-10-20] MEDS: Ibuprofen 600 MG Tab PO PRN (20:22)
--- NOTE | 2018-10-21 04:43 | PCM.PNPP ---
- General Info Date of Service: 10/21/18 Functional Status: Reports: Pain Controlled - Review of Systems General: Reports: No Symptoms HEENT: Reports: No Symptoms Pulmonary: Reports: No Symptoms Cardiovascular: Reports: No Symptoms Gastrointestinal: Reports: No Symptoms Genitourinary: Reports: No Symptoms Musculoskeletal: Reports: No Symptoms Skin: Reports: No Symptoms Neurological: Reports: No Symptoms Psychiatric: Reports: No Symptoms - General Info Date of Service: 10/21/18 - Patient Data Vital Signs - Most Recent: Last Vital Signs Temp 37.0 C 10/21/18 02:58 Pulse 78 10/21/18 02:58 Resp 14 10/21/18 02:58 BP 127/64 10/21/18 02:58 Pulse Ox 97 10/21/18 02:58 Weight - Most Recent: 96.071 kg I&O - Last 24 Hours: Intake & Output 10/20/18 10/20/18 10/21/18 14:59 22:59 06:59 Intake Total 4500 Balance 4500 Lab Results - Last 24 Hours: Laboratory Results - last 24 hr 10/20/18 10/20/18 10/20/18 Range/Units 11:20 11:26 11:26 WBC 12.09 H (3.98-10.04) K/mm3 RBC 4.29 (3.98-5.22) M/mm3 Hgb 11.6 (11.2-15.7) gm/L Hct 36.7 (34.1-44.9) % MCV 85.5 (79.4-94.8) fl MCH 27.0 (25.6-32.2) pg MCHC 31.6 L (32.2-35.5) g/dl RDW Std Deviation 42.4 (36.4-46.3) fL Plt Count 196 (182-369) K/mm3 MPV 10.4 (9.4-12.3) fl Neut % (Auto) 75.2 H (34.0-71.1) % Lymph % (Auto) 13.4 L (19.3-51.7) % [place] % (Auto) 10.7 (4.7-12.5) % Eos % (Auto) 0.2 L (0.7-5.8) Baso % (Auto) 0.1 (0.1-1.2) % Neut # (Auto) 9.10 H (1.56-6.13) K/mm3 Lymph # (Auto) 1.62 (1.18-3.74) K/mm3 [place] # (Auto) 1.29 H (0.24-0.36) K/mm3 Eos # (Auto) 0.02 L (0.04-0.36) K/mm3 Baso # (Auto) 0.01 (0.01-0.08) K/mm3 Urine Opiates Screen Negative (RATAGN=504) Ur Buprenorphine Scrn Negative (CUTOFF=10) Ur Oxycodone Screen Negative (RJN9DT=658) Urine Methadone Screen Negative (KUSHNK=127) Ur Propoxyphene Screen Negative (PRKAZE=704) Ur Barbiturates Screen Negative (BTHVPK=005) Ur Tricyclics Screen Negative (SMPBXP=349) Ur Phencyclidine Scrn Negative (CUTOFF=25) Ur Amphetamine Screen Negative (KQIIJQ=859) U Methamphetamines Scrn Negative (VHOELN=491) U Benzodiazepines Scrn Negative (IRREML=186) U Cocaine Metab Screen Negative (GSURIL=822) U Marijuana (THC) Screen Presumptive positive H (CUTOFF=50) RPR Non-reactive (NONREACTIVE) Med Orders - Current: Current Medications Docusate Sodium (Colace) 100 mg PO BID PRN PRN Reason: Constipation Emollient Ointment (Lansinoh Hpa) 0 gm TOP ASDIRECTED PRN PRN Reason: Sore Nipples Ibuprofen (Motrin) 600 mg PO Q6H PRN PRN Reason: Mild pain or fever Last Admin: 10/20/18 20:22 Dose: 600 mg Witch Oneyda (Tucks) 1 pad TOP ASDIRECTED PRN PRN Reason: Pain Discontinued Medications Diphenhydramine HCl (Benadryl) 25 mg IVPUSH Q6H PRN PRN Reason: Itching Ephedrine Sulfate (Ephedrine Sulfate) 5 mg IVPUSH ASDIRECTED PRN PRN Reason: HYPOTENTSION Last Admin: 10/20/18 15:21 Dose: 5 mg Fentanyl (Sublimaze) 100 mcg EPIDUR Q3H PRN PRN Reason: Pain Last Admin: 10/20/18 14:29 Dose: 100 mcg Fentanyl/Bupivacaine HCl (Xhhxylml-Kdblg-Zj 2 Mcg/Ml-0.125%) 100 ml EPIDUR ASDIRECTED YOUNG Last Admin: 10/20/18 14:30 Dose: 100 ml Ampicillin Sodium 2 gm/ Sodium (Chloride) 100 mls @ 200 mls/hr IV ONETIME ONE Stop: 10/20/18 11:23 Last Admin: 10/20/18 11:02 Dose: 200 mls/hr Ampicillin Sodium 1 gm/ Sodium (Chloride) 100 mls @ 200 mls/hr IV Q4H YOUNG Last Admin: 10/20/18 18:42 Dose: 200 mls/hr Lactated Ringer's (Ringers, Lactated) 1,000 mls @ 100 mls/hr IV ASDIRECTED YOUNG Last Admin: 10/20/18 15:21 Dose: 100 mls/hr Oxytocin/Lactated Ringer's (Pitocin In Lr 10 Units/1,000 Ml) 10 unit in 1,000 mls @ 500 mls/hr IV .CONTINUOUS YOUNG Last Admin: 10/20/18 18:26 Dose: 500 mls/hr Oxytocin/Lactated Ringer's (Pitocin In Lr 10 Units/1,000 Ml) 10 unit in 1,000 mls @ 12 mls/hr IV TITRATE YOUNG; Protocol Last Titration: 10/20/18 18:40 Dose: 3 munits/min, 18 mls/hr Lidocaine HCl (Xylocaine 1%) 50 ml INJECT ONETIME ONE Stop: 10/20/18 10:55 Last Admin: 10/20/18 19:20 Dose: Not Given Nalbuphine HCl (Nubain) 10 mg IVPUSH Q2H PRN PRN Reason: pain Ondansetron HCl (Zofran) 4 mg IVPUSH Q4H PRN PRN Reason: Nausea/Vomiting Sodium Chloride (Saline Flush) 10 ml FLUSH ASDIRECTED PRN PRN Reason: Keep Vein Open - Infant Interaction Disposition, : in Room with Family Interaction: Holding Infant Support Person: Significant Other - Exam General: Alert, Oriented HEENT: Pupils Equal Neck: Supple Lungs: Clear to Auscultation, Normal Respiratory Effort Cardiovascular: Regular Rate, Regular Rhythm GI/Abdominal Exam: Normal Bowel Sounds, Soft, Non-Tender, No Organomegaly, No Distention, No Abnormal Bruit, No Mass, Pelvis Stable Extremities: Normal Inspection, Normal Range of Motion, Non-Tender, No Pedal Edema, Normal Capillary Refill Skin: Warm Neurological: No New Focal Deficit Psy/Mental Status: Alert, Normal Affect, Normal Mood - Problem List Review Problem List Initiated/Reviewed/Updated: Yes - My Orders Last 24 Hours: My Active Orders 10/20/18 10:54 Resuscitation Status Routine 10/20/18 10:55 Heart Tones [RC] ASDIRECTED 10/20/18 11:20 CANNABINOID (THC) CONFIRM, UR Stat 10/20/18 19:20 Activity as Tolerated [RC] PER UNIT ROUTINE Vital Signs [RC] 21,03,09,15 Docusate Sodium [Colace] 100 mg PO BID PRN Ibuprofen [Motrin] 600 mg PO Q6H PRN Lanolin [Lansinoh HPA] See Dose Instructions TOP ASDIRECTED PRN Witch Oneyda [Tucks] 1 pad TOP ASDIRECTED PRN Assess Lochia [WOMSER] Per Unit Routine Assess Uterine Involution [WOMSER] Per Unit Routine Breast Pump [WOMSER] Per Unit Routine Heat Therapy [OM.PC] PRN Medication Administration Instruction [OM.PC] Routine Perineal Care [OM.PC] Per Unit Routine Sitz Bath [OM.PC] Per Unit Routine 10/21/18 19:20 Heat Therapy [OM.PC] PRN - Assessment Assessment:: PPD1 s/p uncomplicated . Doing well. Probable discharge tomorrow
[2018-10-21] MEDS: Ibuprofen 600 MG Tab PO PRN ×2 (07:25→12:46)
--- NOTE | 2018-10-21 07:46 | PCM48HPAN ---
Post Anesthesia Note - EVALUATION WITHIN 48HRS OF ANESTHETIC Vital Signs in Normal Range: Yes Patient Participated in Evaluation: Yes Respiratory Function Stable: Yes Airway Patent: Yes Cardiovascular Function Stable: Yes Hydration Status Stable: Yes Pain Control Satisfactory: Yes Nausea and Vomiting Control Satisfactory: Yes Mental Status Recovered: Yes Pulse Rate: 78 Resp Rate: 14 Temperature: 37.0 C Blood Pressure: 127/64 - COMMENTS/OBSERVATIONS Free Text/Narrative:: no anesthesia complications noted
[2018-10-22] MEDS: Ibuprofen 600 MG Tab PO PRN ×2 (00:02→07:41)
[2018-10-22] MEDS ORDERED: Acetaminophen 325 MG Tab PO PRN (00:46)
--- NOTE | 2018-10-22 07:46 | PCM.DCSUM1 ---
Discharge Summary - Hospital Course Diagnosis: Stroke: No - Discharge Data Discharge Date: 10/22/18 Discharge Disposition: Home, Self-Care 01 Condition: Good - Patient Summary/Data Hospital Course: Admitted in active labor. of viable infant. Discharge in good condition on PPD2. Unremarkable course. - Patient Instructions Diet: Usual Diet as Tolerated Activity: No Strenuous Activities Driving: May Drive Today Showering/Bathing: May Shower Wound/Incision Care: Keep Operative Site/Wound Site Clean and Dry Notify Provider of: Fever, Swelling and Redness, Drainage, Nausea and/or Vomiting - Discharge Plan *PRESCRIPTION DRUG MONITORING PROGRAM REVIEWED*: No *COPY OF PRESCRIPTION DRUG MONITORING REPORT IN PATIENT TIMUR: No Home Medications: Home Meds Albuterol Sulfate [Albuterol Sulfate Hfa] 1 puff INH Q4H PRN 10/20/18 [History] Vits #93/Iron Fum/FA [ Formula Tablet] 1 tab PO DAILY 10/20/18 [History] Referrals: Franki Martinez MD [Physician] - (2 weeks) - Discharge Summary/Plan Comment DC Time >30 min.: No - General Info Date of Service: 10/22/18 Functional Status: Reports: Pain Controlled - Review of Systems General: Reports: No Symptoms HEENT: Reports: No Symptoms Pulmonary: Reports: No Symptoms Cardiovascular: Reports: No Symptoms Gastrointestinal: Reports: No Symptoms Genitourinary: Reports: No Symptoms Musculoskeletal: Reports: No Symptoms Skin: Reports: No Symptoms Neurological: Reports: No Symptoms Psychiatric: Reports: No Symptoms - Patient Data Vitals - Most Recent: Last Vital Signs Temp 36.5 C 10/22/18 04:06 Pulse 62 10/22/18 04:06 Resp 16 10/22/18 04:06 BP 135/71 10/22/18 04:06 Pulse Ox 97 10/22/18 04:06 Weight - Most Recent: 96.071 kg I&O - Last 24 hours: Intake & Output 10/21/18 10/22/18 10/22/18 22:59 06:59 14:59 Intake Total 180 Balance 180 Med Orders - Current: Current Medications Docusate Sodium (Colace) 100 mg PO BID PRN PRN Reason: Constipation Emollient Ointment (Lansinoh Hpa) 0 gm TOP ASDIRECTED PRN PRN Reason: Sore Nipples Ibuprofen (Motrin) 600 mg PO Q6H PRN PRN Reason: Mild pain or fever Last Admin: 10/22/18 07:41 Dose: 600 mg Witch Oneyda (Tucks) 1 pad TOP ASDIRECTED PRN PRN Reason: Pain Last Admin: 10/22/18 00:03 Dose: 1 pad Discontinued Medications Diphenhydramine HCl (Benadryl) 25 mg IVPUSH Q6H PRN PRN Reason: Itching Ephedrine Sulfate (Ephedrine Sulfate) 5 mg IVPUSH ASDIRECTED PRN PRN Reason: HYPOTENTSION Last Admin: 10/20/18 15:21 Dose: 5 mg Fentanyl (Sublimaze) 100 mcg EPIDUR Q3H PRN PRN Reason: Pain Last Admin: 10/20/18 14:29 Dose: 100 mcg Fentanyl/Bupivacaine HCl (Qxekynkk-Bmtyd-Ps 2 Mcg/Ml-0.125%) 100 ml EPIDUR ASDIRECTED YOUNG Last Admin: 10/20/18 14:30 Dose: 100 ml Ampicillin Sodium 2 gm/ Sodium (Chloride) 100 mls @ 200 mls/hr IV ONETIME ONE Stop: 10/20/18 11:23 Last Admin: 10/20/18 11:02 Dose: 200 mls/hr Ampicillin Sodium 1 gm/ Sodium (Chloride) 100 mls @ 200 mls/hr IV Q4H YOUNG Last Admin: 10/20/18 18:42 Dose: 200 mls/hr Lactated Ringer's (Ringers, Lactated) 1,000 mls @ 100 mls/hr IV ASDIRECTED YOUNG Last Admin: 10/20/18 15:21 Dose: 100 mls/hr Oxytocin/Lactated Ringer's (Pitocin In Lr 10 Units/1,000 Ml) 10 unit in 1,000 mls @ 500 mls/hr IV .CONTINUOUS YOUNG Last Admin: 10/20/18 18:26 Dose: 500 mls/hr Oxytocin/Lactated Ringer's (Pitocin In Lr 10 Units/1,000 Ml) 10 unit in 1,000 mls @ 12 mls/hr IV TITRATE YOUNG; Protocol Last Titration: 10/20/18 18:40 Dose: 3 munits/min, 18 mls/hr Lidocaine HCl (Xylocaine 1%) 50 ml INJECT ONETIME ONE Stop: 10/20/18 10:55 Last Admin: 10/20/18 19:20 Dose: Not Given Nalbuphine HCl (Nubain) 10 mg IVPUSH Q2H PRN PRN Reason: pain Ondansetron HCl (Zofran) 4 mg IVPUSH Q4H PRN PRN Reason: Nausea/Vomiting Sodium Chloride (Saline Flush) 10 ml FLUSH ASDIRECTED PRN PRN Reason: Keep Vein Open - Exam General: Reports: Alert, Oriented HEENT: Reports: Pupils Equal, Pupils Reactive, EOMI, Mucous Membr. Moist/[place]: Reports: Supple Lungs: Reports: Clear to Auscultation, Normal Respiratory Effort Cardiovascular: Reports: Regular Rate, Regular Rhythm GI/Abdominal Exam: Normal Bowel Sounds, Soft, Non-Tender, No Organomegaly, No Distention, No Abnormal Bruit, No Mass, Pelvis Stable Rectal (Female) Exam: Normal Exam, Normal Rectal Tone Back Exam: Reports: Normal Inspection, Full Range of Motion Extremities: Normal Inspection, Normal Range of Motion, Non-Tender, No Pedal Edema, Normal Capillary Refill Skin: Reports: Warm, Dry, Intact Wound/Incisions: Reports: Healing Well Neurological: Reports: No New Focal Deficit Psy/Mental Status: Reports: Alert, Normal Affect, Normal Mood
[2018-10-22 10:51] VITALS: BP 116/72
== END 2018-10-22 14:15 | disposition home or self-care (01) | DRG 807 ==
LOC: JD.OB 10:23 → JD.OBCHECK 10:23 → JD.OB 10:55 → OBSVTOIN 18:53 → JD.OB 18:54
PROVIDERS: ADMIT Obstetrics & Gynecology; ATTEND Obstetrics & Gynecology
PROC: 10E0XZZ Delivery of Products of Conception, External Approach (ICD-10-PCS; principal; 2018-10-20)
PROC: 10907ZC Drainage of Amniotic Fluid, Therapeutic from Products of Conception, Via Natural or Artificial Opening (ICD-10-PCS; principal; 2018-10-20)
PROC: 00HU33Z Insertion of Infusion Device into Spinal Canal, Percutaneous Approach (ICD-10-PCS; 2018-10-20)
PROC: 3E0R3BZ Introduction of Anesthetic Agent into Spinal Canal, Percutaneous Approach (ICD-10-PCS; 2018-10-20)
DX: O99.52 Diseases of the respiratory system complicating childbirth (principal); Z37.0 Single live birth; Z3A.39 39 weeks gestation of pregnancy; J45.909 Unspecified asthma, uncomplicated; O99.824 Streptococcus B carrier state complicating childbirth; O99.62 Diseases of the digestive system complicating childbirth; K21.9 Gastro-esophageal reflux disease without esophagitis; O76 Abnormality in fetal heart rate and rhythm complicating labor and delivery; Z79.899 Other long term (current) drug therapy; Z87.891 Personal history of nicotine dependence
CPT/HCPCS: 01967; 36415; 51702; 59025; 59409; 80306; 85025; 86592; A9270-GY; G0480; J0290; J2590; J3010; J3490; J7030; J7120

== ENCOUNTER 2019-08-26 08:22 | Inpatient (IN) | payer MEDICAID ==
[2019-08-26] MEDS ORDERED: Lactated Ringers 2,000 ML ONE (08:24)
[2019-08-26] MEDS ORDERED: Oxytocin 10 Units/1 ML SDV ONE (08:24)
[2019-08-26] MEDS ORDERED: ceFAZolin 1 GM Vial ONE (08:24)
[2019-08-26] MEDS ORDERED: Ondansetron 4 MG/2 ML SDV ONE (08:24)
[2019-08-26] MEDS ORDERED: Ketorolac 30 MG/ML SDV ONE (08:24)
[2019-08-26] MEDS ORDERED: Morphine PF 10 MG/10 ML SDV ONE (08:25)
[2019-08-26] MEDS ORDERED: Propofol 200 MG/20 ML SDV ONE (08:26)
[2019-08-26] MEDS ORDERED: fentaNYL 250 MCG/5 ML SDV ONE (08:26)
[2019-08-26] MEDS ORDERED: Bupivacaine 0.5% 30 ML SDV ONE (08:26)
[2019-08-26] MEDS ORDERED: Succinylcholine/Normal Saline 100 MG/5 ML Syringe ONE ×2 (08:28→08:30)
--- NOTE | 2019-08-26 08:28 | PCM.LDHP ---
L&D History of Present Illness - General Date of Service: 08/26/19 Admit Problem/Dx: Admission Diagnosis/Problem Admission Diagnosis/Problem Source of Information: Patient History Limitations: Reports: No Limitations - History of Present Illness Introduction:: 28 Y/O presented to L&D with severe cramping and vaginal bleeding JANIS EGA 36w5d contractions and H/O fundal placenta and heavy bleeding. Exam cervix 6-7 cm, 100 % effaced, posterior and soft. Possible abriuptiuo placenta GBS positive. 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: - Past Surgical History HEENT Surgical History: Reports: Oral Surgery, Tonsillectomy Social & Family History - Family History Family Medical History: Noncontributory - Caffeine Use Caffeine Use: Reports: Coffee, Soda - Living Situation & Occupation Living situation: Reports: Single Occupation: Unemployed H&P Review of Systems - Review of Systems: Review Of Systems: See Below General: Reports: No Symptoms HEENT: Reports: No Symptoms Pulmonary: Reports: No Symptoms Cardiovascular: Reports: No Symptoms Gastrointestinal: Reports: Abdominal Pain, Other (vaginal bleeding) Genitourinary: Reports: No Symptoms Musculoskeletal: Reports: No Symptoms Skin: Reports: No Symptoms Psychiatric: Reports: No Symptoms Neurological: Reports: No Symptoms Hematologic/Lymphatic: Reports: No Symptoms Immunologic: Reports: No Symptoms L&D Exam - Exam Exam: See Below - OB Specific Contraction Intensity: Strong Movement: Active Heart Tones: Present Heart Tones per Min: 140 Heart Rate (FHR) Variability: Moderate (6-25 bmp) Presentation: Vertex - Davison Score Davison Score Cervix Position: Anterior Davison Score Consistency: Soft Davison Score Effacement: >80% Davison Score Dilation: > 5 cm Davison Score Infant's Station: +1, +2 Davison Score Total: 13 - Exam General: Alert, Oriented HEENT: Conjunctiva Clear, Mucosa Moist & [place] Neck: Supple, Trachea Midline Lungs: Clear to Auscultation, Normal Respiratory Effort Cardiovascular: Regular Rate, Regular Rhythm GI/Abdominal Exam: Normal Bowel Sounds Genitourinary: Normal external exam Extremities: Normal Inspection, Non-Tender, No Pedal Edema, Normal Capillary Refill Skin: Warm, Dry, Intact Psychiatric: Alert, Normal Affect, Normal Mood - Problem List (1) 36 weeks gestation of SNOMED Code(s): 35411710 ICD Code: Z3A.36 - 36 WEEKS GESTATION OF Status: Acute Current Visit: Yes (2) Antepartum bleeding, third trimester SNOMED Code(s): 621717029 ICD Code: O46.93 - ANTEPARTUM HEMORRHAGE, UNSPECIFIED, THIRD TRIMESTER Status: Acute Current Visit: Yes Problem List Initiated/Reviewed/Updated: No Assessment/Plan Comment:: section
[2019-08-26] MEDS ORDERED: Metoclopramide 10 MG/2 ML SDV ONE (08:29)
[2019-08-26] MEDS ORDERED: Citric Acid/Sodium Citrate Solution 30 ML Cup ONE (08:30)
[2019-08-26] MEDS ORDERED: Midazolam 1 MG/ML 2 ML SDV ONE (08:30)
[2019-08-26] MEDS ORDERED: Ketamine 500 mg/10 ML MDV ONE (08:31)
[2019-08-26] MEDS ORDERED: Ondansetron 4 MG/2 ML SDV IVPUSH PRN ×2 (08:46→08:56)
[2019-08-26] MEDS ORDERED: Metoclopramide 10 MG/2 ML SDV IVPUSH ONE (08:46)
[2019-08-26] MEDS ORDERED: Citric Acid/Sodium Citrate Solution 30 ML Cup PO ONE (08:46)
[2019-08-26] MEDS ORDERED: Sodium Chloride 0.9% 10 ML Syringe FLUSH PRN ×2 (08:46→11:47)
[2019-08-26] MEDS ORDERED: Nalbuphine 10 MG/ML Syringe IVPUSH PRN (08:46)
[2019-08-26] MEDS ORDERED: fentaNYL 100 MCG/2 ML SDV IVPUSH PRN (08:56)
[2019-08-26] MEDS ORDERED: HYDROmorphone 0.5 MG/0.5 ML Syringe IVPUSH PRN (08:56)
[2019-08-26] MEDS ORDERED: HYDROmorphone 0.5 MG/0.5 ML Syringe ONE (08:57)
[2019-08-26] MEDS ORDERED: Lactated Ringers 1,000 ML IV SCH (09:00)
[2019-08-26] MEDS ORDERED: Oxytocin/Lactated Ringers 20 UNIT/1,000 ML BAG IV SCH (09:00)
[2019-08-26] MEDS ORDERED: ceFAZolin 2 GM in Premix Bag 1 BAG IV ONE (09:00)
--- NOTE | 2019-08-26 09:29 | PCM.POSTAN ---
POST ANESTHESIA ASSESSMENT - MENTAL STATUS Mental Status: Other (Drowsy) - VITAL SIGNS Vital Signs: 0921 120/63 90 16 97% 99F - RESPIRATORY Respiratory Status: Respiratory Rate WNL, Airway Patent, O2 Saturation Stable, Supplemental Oxygen - CARDIOVASCULAR CV Status: Pulse Rate WNL, Blood Pressure Stable - GASTROINTESTINAL GI Status: No Symptoms - PAIN Pain Score: 0 - POST OP HYDRATION Hydration Status: Adequate & Stable
--- NOTE | 2019-08-26 09:34 | PCM.PREANE ---
Preanesthetic Assessment - Procedure Proposed Procedure: Stat Csection - Anesthesia/Transfusion/Family Hx Anesthesia History: Prior Anesthesia Without Reaction Family History of Anesthesia Reaction: No Transfusion History: No Prior Transfusion(s) - Review of Systems General: No Symptoms Pulmonary: No Symptoms Cardiovascular: No Symptoms Gastrointestinal: No Symptoms Neurological: No Symptoms - Physical Assessment NPO Status Date: 08/26/19 NPO Status Time: 12:30 Vital Signs: 98% 20 140/90 97 ASA Class: 2E Mental Status: Alert & Oriented x3 Airway Class: Mallampati = 1 Dentition: Reports: Broken Tooth/Teeth, Missing Tooth/Teeth Thyro-Mental Finger Breadths: 3 Mouth Opening Finger Breadths: 3 ROM/Head Extension: Full - Lab Values: Laboratory Last Values WBC 8.00 K/mm3 (3.98-10.04) 08/26/19 08:32 RBC 4.32 M/mm3 (3.98-5.22) 08/26/19 08:32 Hgb 11.7 gm/dl (11.2-15.7) 08/26/19 08:32 Hct 37.0 % (34.1-44.9) 08/26/19 08:32 MCV 85.6 fl (79.4-94.8) 08/26/19 08:32 MCH 27.1 pg (25.6-32.2) 08/26/19 08:32 MCHC 31.6 g/dl (32.2-35.5) L 08/26/19 08:32 RDW Std Deviation 42.7 fL (36.4-46.3) 08/26/19 08:32 Plt Count 197 K/mm3 (182-369) 08/26/19 08:32 MPV 10.5 fl (9.4-12.3) 08/26/19 08:32 Neut % (Auto) 60.2 % (34.0-71.1) 08/26/19 08:32 Lymph % (Auto) 27.8 % (19.3-51.7) 08/26/19 08:32 [place] % (Auto) 10.9 % (4.7-12.5) 08/26/19 08:32 Eos % (Auto) 0.6 (0.7-5.8) L 08/26/19 08:32 Baso % (Auto) 0.1 % (0.1-1.2) 08/26/19 08:32 Neut # (Auto) 4.82 K/mm3 (1.56-6.13) 08/26/19 08:32 Lymph # (Auto) 2.22 K/mm3 (1.18-3.74) 08/26/19 08:32 [place] # (Auto) 0.87 K/mm3 (0.24-0.36) H 08/26/19 08:32 Eos # (Auto) 0.05 K/mm3 (0.04-0.36) 08/26/19 08:32 Baso # (Auto) 0.01 K/mm3 (0.01-0.08) 08/26/19 08:32 Blood Type A POSITIVE 08/26/19 08:32 Gel Antibody Screen Negative 08/26/19 08:32 - Allergies Allergies/Adverse Reactions: Allergies Allergy/AdvReac Type Severity Reaction Status Date / Time No Known Allergies Allergy Verified 08/26/19 08:45 - Blood Blood Available: No - Acknowledgements Anesthesia Type Planned: General Anesthesia Pt an Appropriate Candidate for the Planned Anesthesia: Yes Alternatives and Risks of Anesthesia Discussed w Pt/Guardian: Yes Pt/Guardian Understands and Agrees with Anesthesia Plan: Yes PreAnesthesia Questionnaire - Past Health History Medical/Surgical History: Denies Medical/Surgical History Cardiovascular History: Reports: None Respiratory History: Reports: Asthma Other Respiratory History: uses albuterol inhaler Gastrointestinal History: Reports: GERD 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: : 6 Para: 5 - Past Surgical History HEENT Surgical History: Reports: Oral Surgery, Tonsillectomy - History Comment History Comment: vits- noted ecchymotic area left eye and small healing skin cut left cheek area and forehead - SUBSTANCE USE Tobacco Use Within Last Twelve Months: No Second Hand Smoke Exposure: Yes Days Per Week of Alcohol Use: 0 (none after ) - CURRENT (IN HOUSE) MEDS Current Meds: Current Medications Fentanyl (Sublimaze) 50 mcg IVPUSH Q5M PRN PRN Reason: Pain Stop: 08/26/19 12:00 Hydromorphone HCl (Dilaudid) 0.5 mg IVPUSH Q10M PRN PRN Reason: Pain (severe 7-10) Stop: 08/26/19 12:00 Lactated Ringer's (Ringers, Lactated) 1,000 mls @ 125 mls/hr IV ASDIRECTED [facility] Oxytocin/Lactated Ringer's (Pitocin In Lr 20 Units/1,000 Ml) 20 unit in 1,000 mls @ 500 mls/hr IV ASDIRECTED [facility] Nalbuphine HCl (Nubain) 10 mg IVPUSH Q2H PRN PRN Reason: Pain Ondansetron HCl (Zofran) 4 mg IVPUSH Q4H PRN PRN Reason: Nausea/Vomiting Ondansetron HCl (Zofran) 4 mg IVPUSH ONETIME PRN PRN Reason: Nausea/Vomiting Stop: 08/26/19 12:00 Sodium Chloride (Saline Flush) 10 ml FLUSH ASDIRECTED PRN PRN Reason: Keep Vein Open Discontinued Medications Bupivacaine HCl (Marcaine 0.5%) Confirm Administered Dose 30 ml .ROUTE .STK-MED ONE Stop: 08/26/19 08:27 Cefazolin Sodium (Ancef) Confirm Administered Dose 2 gm .ROUTE .STK-MED ONE Stop: 08/26/19 08:25 Citric Acid/Sodium Citrate (Bicitra Solution) Confirm Administered Dose 30 ml .ROUTE .STK-MED ONE Stop: 08/26/19 08:31 Citric Acid/Sodium Citrate (Bicitra Solution) 30 ml PO ONETIME ONE Stop: 08/26/19 08:47 Fentanyl (Sublimaze) Confirm Administered Dose 250 mcg .ROUTE .STK-MED ONE Stop: 08/26/19 08:27 Hydromorphone HCl (Dilaudid) Confirm Administered Dose 0.5 mg .ROUTE .STK-MED ONE Stop: 08/26/19 08:58 Lactated Ringer's (Ringers, Lactated) Confirm Administered Dose 2,000 mls @ as directed .ROUTE .STK-MED ONE Stop: 08/26/19 08:25 Cefazolin Sodium/Dextrose 2 gm (/ Premix) 50 mls @ 100 mls/hr IV ONETIME ONE Stop: 08/26/19 09:29 Ketamine HCl (Ketalar) Confirm Administered Dose 500 mg .ROUTE .STK-MED ONE Stop: 08/26/19 08:32 Ketorolac Tromethamine (Toradol) Confirm Administered Dose 30 mg .ROUTE .STK- MED ONE Stop: 08/26/19 08:25 Metoclopramide HCl (Reglan) Confirm Administered Dose 10 mg .ROUTE .STK-MED ONE Stop: 08/26/19 08:30 Metoclopramide HCl (Reglan) 10 mg IVPUSH ONETIME ONE Stop: 08/26/19 08:47 Midazolam HCl (Versed 1 Mg/Ml) Confirm Administered Dose 2 mg .ROUTE .STK-MED ONE Stop: 08/26/19 08:31 Morphine Sulfate (Duramorph Pf) Confirm Administered Dose 10 mg .ROUTE .STK-MED ONE Stop: 08/26/19 08:26 Ondansetron HCl (Zofran) Confirm Administered Dose 4 mg .ROUTE .STK-MED ONE Stop: 08/26/19 08:25 Oxytocin (Pitocin) Confirm Administered Dose 20 unit .ROUTE .STK-MED ONE Stop: 08/26/19 08:25 Propofol (Diprivan 20 Ml) Confirm Administered Dose 200 mg .ROUTE .STK-MED ONE Stop: 08/26/19 08:27 Succinylcholine Chloride (Succinylcholine In Ns Pf) Confirm Administered Dose 100 mg .ROUTE .STK-MED ONE Stop: 08/26/19 08:29 Succinylcholine Chloride (Succinylcholine In Ns Pf) Confirm Administered Dose 100 mg .ROUTE .STK-MED ONE Stop: 08/26/19 08:31
--- NOTE | 2019-08-26 09:36 | PCM.OPNOTE ---
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 surgery, decrease comorbidity and mortality Role of Steel Shot Header Operator: Asst. surgery, decrease comorbidity and mortality Fluid Replacement, Intraop: 1,900 Output, Urine Amount: 500 EBL in mLs: 1,500 Drain/Tube Comments:: baker Complications: None Condition: Good Free Text/Narrative:: Emergency section called at 0816 hrs. and baby delivered at 0842 hrs. Patient was transported to the operating room #1. SCDs in place and functioning prior surgery. Ancef 2 g given intravenously prior surgery. Baker catheter placed gravity drainage. Betadine prep draped in a sterile fashion. Timeout performed. Patient was placed under general anesthesia and a Pfannenstiel incision was made and care was sharp section to into the anterior fascia, peritoneal cavity entered without difficulty. Low segment transverse performed with delivery of the female liveborn is 0842 hrs. (incision made at 0841 hrs.) candle wrapper in attendance Dr. Ac. Weight 2920This note was created, at least in part, by the use of [employer] voice dictation system. Inadvertent typographical errors, due to software recognition problems, may exist. grams/ 6 pounds 7 ounces, Apgars 8/9. Cord blood collected from three- vessel cord. Placenta was removed manually and inspected and at approximately 10 -15% abruptio placenta at the marginal edge of the placenta. Endometrial cavity inspected sponge needle pack and asthma count correct times one. The uterine incision closed in 2 layers running locking suture of #0 Monocryl for the first layer and a horizontal imbricating suture for second layer. Additional figure-of -eight sutures taken in the right corner of the incision cause of arterial bleeding, and in the middle portion of the incision. Hemostasis was obtained. Tubes and ovaries were normal. Clots were cleaned from the gutters and cul-de- sac uterus replaced into the abdominal cavity. Uterine incision was inspected and additional [id number] suture placed for hemostasis at the uterine incision. Reinspection of the uterine incision showed no bleeding and the sponge needle asthma and sharp count correct the abdominal cavity was closed with #1 PDS running suture. Irrigation carried out in the subcutaneous tissue and the septated tissue was approximated with 3 sutures of 0 Monocryl. Skin was closed subcuticular suture of 3-0 Monocryl on Stiven needle. Dermabond Preneo applied. Clots were cleaned from the vagina at the end of the procedure and patient was transported postanesthesia care unit in satisfactory condition. No blood transfusions given during surgery. Toradol 30 mg given at the end of surgery. This note was created, at least in part, by the use of [employer] voice dictation system. Inadvertent typographical errors, due to software recognition problems, may exist.
[2019-08-26] MEDS ORDERED: Naloxone 0.4 MG/ML SDV IVPUSH PRN (11:47)
[2019-08-26] MEDS ORDERED: diphenhydrAMINE 50 MG/ML SDV IVPUSH PRN (11:47)
[2019-08-26] MEDS ORDERED: Docusate Sodium 100 MG Cap PO PRN (11:47)
[2019-08-26] MEDS ORDERED: Ondansetron 4 MG/2 ML SDV IV PRN (11:47)
[2019-08-26] MEDS ORDERED: ePHEDrine 50 MG/ML SDV IVPUSH PRN (11:47)
[2019-08-26] MEDS ORDERED: Acetaminophen/Codeine 300-30 MG Tab PO PRN ×2 (11:47)
[2019-08-26] MEDS ORDERED: Acetaminophen 325 MG Tab PO PRN (11:47)
[2019-08-26] MEDS ORDERED: Dextrose 5%-Lactated Ringers 1,000 ML IV SCH (11:47)
[2019-08-26] MEDS ORDERED: Acetaminophen/oxyCODONE 325-5 MG Tab PO PRN (11:59)
[2019-08-26] MEDS: Acetaminophen/oxyCODONE 325-5 MG Tab PO PRN ×3 (12:08→20:53)
[2019-08-26] MEDS: Simethicone 80 MG Tab.Chew PO SCH ×3 (13:12→21:00)
[2019-08-26] MEDS: Ketorolac 30 MG/ML SDV IVPUSH SCH ×2 (15:17→21:01)
[2019-08-26] MEDS: ceFAZolin 1 GM in Premix Bag 1 BAG IV SCH (16:50)
[2019-08-27] MEDS: ceFAZolin 1 GM in Premix Bag 1 BAG IV SCH (00:12)
[2019-08-27] MEDS: Acetaminophen/oxyCODONE 325-5 MG Tab PO PRN ×5 (03:30→21:49)
[2019-08-27] MEDS: Ketorolac 30 MG/ML SDV IVPUSH SCH (04:16)
--- NOTE | 2019-08-27 08:03 | PCM48HPAN ---
Post Anesthesia Note - EVALUATION WITHIN 48HRS OF ANESTHETIC Vital Signs in Normal Range: Yes Patient Participated in Evaluation: Yes Respiratory Function Stable: Yes Airway Patent: Yes Cardiovascular Function Stable: Yes Hydration Status Stable: Yes Pain Control Satisfactory: Yes Nausea and Vomiting Control Satisfactory: Yes Mental Status Recovered: Yes (no complaints- sitting up holding baby) Vital Signs: Last Vital Signs Temp 98.2 F 08/27/19 04:15 Pulse 66 08/27/19 04:15 Resp 16 08/27/19 04:15 BP 133/50 L 08/27/19 04:15 Pulse Ox 96 08/27/19 04:15
[2019-08-27] MEDS: Simethicone 80 MG Tab.Chew PO SCH ×4 (09:00→21:49)
--- NOTE | 2019-08-27 09:23 | PCM.SN ---
- Free Text/Narrative Note: Afebrile. Hemoglobin 8.0 consistent with what was expected from blood loss. No heavy vaginal bleeding uterus involuting normally incision normal no leg cramping.
[2019-08-27] MEDS: Ibuprofen 600 MG Tab PO PRN ×2 (10:02→20:41)
[2019-08-27] MEDS ORDERED: FLU Vacc QS2019-20(6MOS+)/PF 60 MCG/0.5 ML SYRINGE IM ONE (13:00)
[2019-08-28] MEDS: Acetaminophen/oxyCODONE 325-5 MG Tab PO PRN ×4 (02:04→14:06)
[2019-08-28] MEDS: Ibuprofen 600 MG Tab PO PRN (04:51)
[2019-08-28] MEDS: Simethicone 80 MG Tab.Chew PO SCH ×2 (08:10→14:05)
--- NOTE | 2019-08-28 08:38 | PCM.DCSUM1 ---
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 surgery, decrease comorbidity and mortality Role of Endless Belt Finisher: Asst. surgery, decrease comorbidity and mortality Fluid Replacement, Intraop: 1,900 Output, Urine Amount: 500 EBL in mLs: 1,500 Drain/Tube Comments:: baker Complications: None Condition: Good Free Text/Narrative:: Emergency section called at 0816 hrs. and baby delivered at 0842 hrs. Patient was transported to the operating room #1. SCDs in place and functioning prior surgery. Ancef 2 g given intravenously prior surgery. Baker catheter placed gravity drainage. Betadine prep draped in a sterile fashion. Timeout performed. Patient was placed under general anesthesia and a Pfannenstiel incision was made and care was sharp section to into the anterior fascia, peritoneal cavity entered without difficulty. Low segment transverse performed with delivery of the female liveborn is 0842 hrs. (incision made at 0841 hrs.) unhairing inspector in attendance Dr. Ac. Weight 2920This note was created, at least in part, by the use of [employer] voice dictation system. Inadvertent typographical errors, due to software recognition problems, may exist. grams/ 6 pounds 7 ounces, Apgars 8/9. Cord blood collected from three- vessel cord. Placenta was removed manually and inspected and at approximately 10 -15% abruptio placenta at the marginal edge of the placenta. Endometrial cavity inspected sponge needle pack and asthma count correct times one. The uterine incision closed in 2 layers running locking suture of #0 Monocryl for the first layer and a horizontal imbricating suture for second layer. Additional figure-of -eight sutures taken in the right corner of the incision cause of arterial bleeding, and in the middle portion of the incision. Hemostasis was obtained. Tubes and ovaries were normal. Clots were cleaned from the gutters and cul-de- sac uterus replaced into the abdominal cavity. Uterine incision was inspected and additional [id number] suture placed for hemostasis at the uterine incision. Reinspection of the uterine incision showed no bleeding and the sponge needle asthma and sharp count correct the abdominal cavity was closed with #1 PDS running suture. Irrigation carried out in the subcutaneous tissue and the septated tissue was approximated with 3 sutures of 0 Monocryl. Skin was closed subcuticular suture of 3-0 Monocryl on Stiven needle. Dermabond Preneo applied. Clots were cleaned from the vagina at the end of the procedure and patient was transported postanesthesia care unit in satisfactory condition. No blood transfusions given during surgery. Toradol 30 mg given at the end of surgery. This note was created, at least in part, by the use of [employer] voice dictation system. Inadvertent typographical errors, due to software recognition problems, may exist. HPI Initial Comments: [facility] Post-Op/Procedure Note Patient Name: MATIAS CRAMER Date of : 89 Patient Status: Inpatient Attending Provider: Franki Martinez Date: 08/26/19 09:22 Initialization Date: 08/26/19 09:22 - General Post-Op/Procedure Note Date of Surgery/Procedure: 08/26/19 Operative Procedure(s): Primary low segment transverse Pre Op Diagnosis: 36+ weeks, third trimester bleeding Post-Op Diagnosis: Same plus marginal abruptio placentae Anesthesia Technique: General ET Tube Primary Surgeon: Franki Martinez Secondary Surgeon: Hua Jones Anesthesia Provider: Mar Rodriguez Endless Belt Finisher: Chico Cummings (PAS) Reason Endless Belt Finisher Was Necessary: Asst. surgery, decrease comorbidity and mortality Role of Endless Belt Finisher: Asst. surgery, decrease comorbidity and mortality Fluid Replacement, Intraop: 1,900 Output, Urine Amount: 500 EBL in mLs: 1,500 Drain/Tube Comments:: baker Complications: None Condition: Good Free Text/Narrative:: Emergency section called at 0816 hrs. and baby delivered at 0842 hrs. Patient was transported to the operating room #1. SCDs in place and functioning prior surgery. Ancef 2 g given intravenously prior surgery. Baker catheter placed gravity drainage. Betadine prep draped in a sterile fashion. Timeout performed. Patient was placed under general anesthesia and a Pfannenstiel incision was made and care was sharp section to into the anterior fascia, peritoneal cavity entered without difficulty. Low segment transverse performed with delivery of the female liveborn is 0842 hrs. (incision made at 0841 hrs.) unhairing inspector in attendance Dr. Ac. Weight 2920This note was created, at least in part, by the use of [employer] voice dictation system. Inadvertent typographical errors, due to software recognition problems, may exist. grams/ 6 pounds 7 ounces, Apgars 8/9. Cord blood collected from three- vessel cord. Placenta was removed manually and inspected and at approximately 10 -15% abruptio placenta at the marginal edge of the placenta. Endometrial cavity inspected sponge needle pack and asthma count correct times one. The uterine incision closed in 2 layers running locking suture of #0 Monocryl for the first layer and a horizontal imbricating suture for second layer. Additional figure-of -eight sutures taken in the right corner of the incision cause of arterial bleeding, and in the middle portion of the incision. Hemostasis was obtained. Tubes and ovaries were normal. Clots were cleaned from the gutters and cul-de- sac uterus replaced into the abdominal cavity. Uterine incision was inspected and additional [id number] suture placed for hemostasis at the uterine incision. Reinspection of the uterine incision showed no bleeding and the sponge needle asthma and sharp count correct the abdominal cavity was closed with #1 PDS running suture. Irrigation carried out in the subcutaneous tissue and the septated tissue was approximated with 3 sutures of 0 Monocryl. Skin was closed subcuticular suture of 3-0 Monocryl on Stiven needle. Dermabond Preneo applied. Clots were cleaned from the vagina at the end of the procedure and patient was transported postanesthesia care unit in satisfactory condition. No blood transfusions given during surgery. Toradol 30 mg given at the end of surgery. This note was created, at least in part, by the use of [employer] voice dictation system. Inadvertent typographical errors, due to software recognition problems, may exist. Brief History: [facility] . Post-Op/Procedure Note. Patient Name: MATIAS CRAMER Record Number: [id number]. Date of : Patient Status: Inpatient. Attending Provider: Franki Martinezount Number: [id number]. Date: 08/26/19 09:22Initialization Date: 08/26/19 09:22. - General Post-Op/Procedure Note. Date of Surgery/Procedure: 08/26/19. Operative Procedure(s): Primary low segment transverse . Pre Op Diagnosis: 36+ weeks, third trimester bleeding. Post-Op Diagnosis: Same plus marginal abruptio placentae. Anesthesia Technique: General ET Tube. Primary Surgeon: Franki Martinez. Secondary Surgeon: Hua Jones. Anesthesia Provider: Mar Rodriguez. Endless Belt Finisher: Chico Cummings (SUMIT). Reason Endless Belt Finisher Was Necessary: Asst. surgery, decrease comorbidity and mortality. Role of Endless Belt Finisher: Asst. surgery, decrease comorbidity and mortality. Fluid Replacement, Intraop: 1,900. Output, Urine Amount: 500. EBL in mLs: 1,500. Drain/Tube Comments:: baker. Complications: None. Condition: Good. Free Text/ Narrative:: Emergency section called at 0816 hrs. and baby delivered at 0842 hrs. Patient was transported to the operating room #1. SCDs in place and functioning prior surgery. Ancef 2 g given intravenously prior surgery. Baker catheter placed gravity drainage. Betadine prep draped in a sterile fashion. Timeout performed. Patient was placed under general anesthesia and a Pfannenstiel incision was made and care was sharp section to into the anterior fascia, peritoneal cavity entered without difficulty. Low segment transverse C- section performed with delivery of the female liveborn is 0842 hrs. (incision made at 0841 hrs.) unhairing inspector in attendance Dr. Ac. Weight 2920This note was created, at least in part, by the use of [employer] dictation system. Inadvertent typographical errors, due to software recognition problems, may exist. grams/ 6 pounds 7 ounces, Apgars 8/9. Cord blood collected from three- vessel cord. Placenta was removed manually and inspected and at approximately 10 -15% abruptio placenta at the marginal edge of the placenta. Endometrial cavity inspected sponge needle pack and asthma count correct times one. The uterine incision closed in 2 layers running locking suture of #0 Monocryl for the first layer and a horizontal imbricating suture for second layer. Additional figure-of -eight sutures taken in the right corner of the incision cause of arterial bleeding, and in the middle portion of the incision. Hemostasis was obtained. Tubes and ovaries were normal. Clots were cleaned from the gutters and cul-de- sac uterus replaced into the abdominal cavity. Uterine incision was inspected and additional [id number] suture placed for hemostasis at the uterine incision. Reinspection of the uterine incision showed no bleeding and the sponge needle asthma and sharp count correct the abdominal cavity was closed with #1 PDS running suture. Irrigation carried out in the subcutaneous tissue and the septated tissue was approximated with 3 sutures of 0 Monocryl. Skin was closed subcuticular suture of 3-0 Monocryl on Stiven needle. Dermabond Preneo applied. Clots were cleaned from the vagina at the end of the procedure and patient was transported postanesthesia care unit in satisfactory condition. No blood transfusions given during surgery. Toradol 30 mg given at the end of surgery. This note was created, at least in part, by the use of [employer] voice dictation system. Inadvertent typographical errors, due to software recognition problems, may exist. Diagnosis: Stroke: No - Discharge Data Discharge Date: 08/28/19 Discharge Disposition: Home, Self-Care 01 Condition: Good - Referral to Home Health Primary Care Physician: Franki Martinez MD - Discharge Diagnosis/Problem(s) (1) 36 weeks gestation of SNOMED Code(s): 65391148 ICD Code: Z3A.36 - 36 WEEKS GESTATION OF Status: Acute Current Visit: Yes (2) Antepartum bleeding, third trimester SNOMED Code(s): 617568753 ICD Code: O46.93 - ANTEPARTUM HEMORRHAGE, UNSPECIFIED, THIRD TRIMESTER Status: Acute Current Visit: Yes (3) Postoperative anemia due to acute blood loss SNOMED Code(s): 62730654915149426 ICD Code: D62 - ACUTE POSTHEMORRHAGIC ANEMIA Status: Acute Current Visit : Yes - Patient Summary/Data Operative Procedure(s) Performed: Primary low segment transverse Complications: None Consults: Consultations 08/26/19 13:42 Consult to Case Management/Torch Solderer [CONS] Routine Hospital Course: Uneventful - Patient Instructions Diet: Usual Diet as Tolerated Driving: Do Not Drive (2 weeks) Showering/Bathing: May Shower, No Tub Bathing/Swimming (6 weeks) Wound/Incision Care: Keep Operative Site/Wound Site Clean and Dry Notify Provider of: Fever, Increased Pain, Swelling and Redness, Drainage, Nausea and/or Vomiting - Discharge Plan *PRESCRIPTION DRUG MONITORING PROGRAM REVIEWED*: Yes *COPY OF PRESCRIPTION DRUG MONITORING REPORT IN PATIENT TIMUR: No Prescriptions/Med Rec: Acetaminophen/oxyCODONE [Percocet 325-5 MG] 1 tab PO Q6H PRN #20 tablet PRN Reason: Pain (Moderate 4-6) Iron,Carbonyl/Ascorbic Acid [Iron 100-Vitamin C Tablet] 1 each PO TID #100 tablet Home Medications: Home Meds Mv-Mn/Iron/FA/Herbal/Digestive [ One Tablet] 1 tab PO DAILY 08/26/19 [ History] Acetaminophen [Tylenol] 650 mg PO Q6H PRN tablet 08/28/19 [Rx] Acetaminophen/oxyCODONE [Percocet 325-5 MG] 1 tab PO Q6H PRN #20 tablet [Rx] Docusate Sodium [Colace] 100 mg PO Q12H PRN cap 08/28/19 [Rx] Ibuprofen [Motrin] 600 mg PO Q6H PRN tablet 08/28/19 [Rx] Iron,Carbonyl/Ascorbic Acid [Iron 100-Vitamin C Tablet] 1 each PO TID #100 tablet 08/28/19 [Rx] Simethicone 80 mg PO PCBED tab.chew 08/28/19 [Rx] Referrals: Franki Martinez MD [Primary Care Provider] - (Patient to see me on 2019 will call for that appointment before leaving hospital) - Discharge Summary/Plan Comment DC Time >30 min.: No - Patient Data Vitals - Most Recent: Last Vital Signs Temp 97.5 F 08/27/19 20:38 Pulse 85 08/28/19 03:37 Resp 15 08/28/19 03:37 BP 145/80 H 08/28/19 03:37 Pulse Ox 98 08/28/19 03:37 Weight - Most Recent: 222 lb I&O - Last 24 hours: Intake & Output 08/27/19 08/28/19 08/28/19 22:59 06:59 14:59 Intake Total 440 Output Total 1150 Balance -710 Lab Results - Last 24 hrs: Laboratory Results - last 24 hr 08/28/19 Range/Units 05:40 WBC 6.44 (3.98-10.04) K/mm3 RBC 3.14 L (3.98-5.22) M/mm3 Hgb 8.3 L (11.2-15.7) gm/dl Hct 27.6 L (34.1-44.9) % MCV 87.9 (79.4-94.8) fl MCH 26.4 (25.6-32.2) pg MCHC 30.1 L (32.2-35.5) g/dl RDW Std Deviation 44.4 (36.4-46.3) fL Plt Count 196 (182-369) K/mm3 MPV 10.2 (9.4-12.3) fl Neut % (Auto) 66.0 (34.0-71.1) % Lymph % (Auto) 22.8 (19.3-51.7) % Sampson % (Auto) 9.9 (4.7-12.5) % Eos % (Auto) 0.8 (0.7-5.8) Baso % (Auto) 0.2 (0.1-1.2) % Neut # (Auto) 4.25 (1.56-6.13) K/mm3 Lymph # (Auto) 1.47 (1.18-3.74) K/mm3 Sampson # (Auto) 0.64 H (0.24-0.36) K/mm3 Eos # (Auto) 0.05 (0.04-0.36) K/mm3 Baso # (Auto) 0.01 (0.01-0.08) K/mm3 Med Orders - Current: Current Medications Acetaminophen (Tylenol) 650 mg PO Q4H PRN PRN Reason: mild pain or fever Diphenhydramine HCl (Benadryl) 25 mg IVPUSH Q6H PRN PRN Reason: Itching or Nausea Docusate Sodium (Colace) 100 mg PO Q12H PRN PRN Reason: Constipation Ephedrine Sulfate (Ephedrine Sulfate) 5 mg IVPUSH SEECOMMENT PRN PRN Reason: Other Ibuprofen (Motrin) 600 mg PO Q6H PRN PRN Reason: mild pain or fever Last Admin: 08/28/19 04:51 Dose: 600 mg Naloxone HCl (Narcan) 0.1 mg IVPUSH SEECOMMENT PRN PRN Reason: Respiratory Depression Ondansetron HCl (Zofran) 4 mg IV Q8H PRN PRN Reason: Nausea/Vomiting Oxycodone/Acetaminophen (Percocet 325-5 Mg) 2 tab PO Q4H PRN PRN Reason: Pain (severe 7-10) Last Admin: 08/28/19 06:37 Dose: 2 tab Oxycodone/Acetaminophen (Percocet 325-5 Mg) 1 tab PO Q4H PRN PRN Reason: Pain (moderate 4-6) Simethicone (Simethicone) 80 mg PO PCBED YOUNG Last Admin: 08/28/19 08:10 Dose: 80 mg Sodium Chloride (Saline Flush) 10 ml FLUSH ASDIRECTED PRN PRN Reason: Keep Vein Open Discontinued Medications Acetaminophen/Codeine Phosphate (Tylenol With Codeine No.3 300mg/30mg) 1 tab PO Q4H PRN PRN Reason: Pain (moderate 4-6) Acetaminophen/Codeine Phosphate (Tylenol With Codeine No.3 300mg/30mg) 2 tab PO Q4H PRN PRN Reason: Pain (moderate 4-6) Bupivacaine HCl (Marcaine 0.5%) Confirm Administered Dose 30 ml .ROUTE .STK-MED ONE Stop: 08/26/19 08:27 Last Admin: 08/26/19 08:41 Dose: 20 ml Cefazolin Sodium (Ancef) Confirm Administered Dose 2 gm .ROUTE .STK-MED ONE Stop: 08/26/19 08:25 Citric Acid/Sodium Citrate (Bicitra Solution) Confirm Administered Dose 30 ml .ROUTE .STK-MED ONE Stop: 08/26/19 08:31 Last Admin: 08/26/19 13:46 Dose: Not Given Citric Acid/Sodium Citrate (Bicitra Solution) 30 ml PO ONETIME ONE Stop: 08/26/19 08:47 Last Admin: 08/26/19 08:29 Dose: 30 ml Fentanyl (Sublimaze) Confirm Administered Dose 250 mcg .ROUTE .STK-MED ONE Stop: 08/26/19 08:27 Fentanyl (Sublimaze) 50 mcg IVPUSH Q5M PRN PRN Reason: Pain Stop: 08/26/19 12:00 Last Admin: 08/26/19 09:40 Dose: 50 mcg Hydromorphone HCl (Dilaudid) 0.5 mg IVPUSH Q10M PRN PRN Reason: Pain (severe 7-10) Stop: 08/26/19 12:00 Last Admin: 08/26/19 10:17 Dose: 0.5 mg Hydromorphone HCl (Dilaudid) Confirm Administered Dose 0.5 mg .ROUTE .STK-MED ONE Stop: 08/26/19 08:58 Lactated Ringer's (Ringers, Lactated) Confirm Administered Dose 2,000 mls @ as directed .ROUTE .STK-MED ONE Stop: 08/26/19 08:25 Cefazolin Sodium/Dextrose 2 gm (/ Premix) 50 mls @ 100 mls/hr IV ONETIME ONE Stop: 08/26/19 09:29 Lactated Ringer's (Ringers, Lactated) 1,000 mls [facility] Last Admin: 08/26/19 10:07 Dose: 125 mls/hr Oxytocin/Lactated Ringer's (Pitocin In Lr 20 Units/1,000 Ml) 20 unit in 1,000 mls @ 500 mls/hr IV [facility] Cefazolin Sodium/Dextrose 1 gm (/ Premix) 50 mls @ 100 mls/hr IV Q8H [facility] Stop: 08/27/19 00:59 Last Infusion: 08/27/19 22:01 Dose: Infused Dextrose/Lactated Ringer's (Dextrose 5%-Lactated Ringers) 1,000 mls @ 125 mls/ hr [facility] Stop: 08/26/19 19:46 Last Admin: 08/26/19 13:14 Dose: 125 mls/hr Influenza Virus Vaccine (Fluzone Quad [id number] Syringe) 60 mcg IM .ONCE ONE Stop: 08/27/19 13:01 Last Admin: 08/27/19 13:59 Dose: 60 mcg Ketamine HCl (Ketalar) Confirm Administered Dose 500 mg .ROUTE .STK-MED ONE Stop: 08/26/19 08:32 Ketorolac Tromethamine (Toradol) Confirm Administered Dose 30 mg .ROUTE .ST- MED ONE Stop: 08/26/19 08:25 Ketorolac Tromethamine (Toradol) 30 mg IVPUSH Q6H YOUNG Stop: 08/27/19 04:01 Last Admin: 08/27/19 04:16 Dose: 30 mg Metoclopramide HCl (Reglan) Confirm Administered Dose 10 mg .ROUTE .[facility]-MED ONE Stop: 08/26/19 08:30 Last Admin: 08/26/19 13:46 Dose: Not Given Metoclopramide HCl (Reglan) 10 mg IVPUSH ONETIME ONE Stop: 08/26/19 08:47 Last Admin: 08/26/19 08:30 Dose: 10 mg Midazolam HCl (Versed 1 Mg/Ml) Confirm Administered Dose 2 mg .ROUTE .ST-MED ONE Stop: 08/26/19 08:31 Morphine Sulfate (Duramorph Pf) Confirm Administered Dose 10 mg .ROUTE .STK-MED ONE Stop: 08/26/19 08:26 Nalbuphine HCl (Nubain) 10 mg IVPUSH Q2H PRN PRN Reason: Pain Ondansetron HCl (Zofran) Confirm Administered Dose 4 mg .ROUTE .STK-MED ONE Stop: 08/26/19 08:25 Ondansetron HCl (Zofran) 4 mg IVPUSH Q4H PRN PRN Reason: Nausea/Vomiting Ondansetron HCl (Zofran) 4 mg IVPUSH ONETIME PRN PRN Reason: Nausea/Vomiting Stop: 08/26/19 12:00 Oxytocin (Pitocin) Confirm Administered Dose 20 unit .ROUTE .STK-MED ONE Stop: 08/26/19 08:25 Propofol (Diprivan 20 Ml) Confirm Administered Dose 200 mg .ROUTE .STK-MED ONE Stop: 08/26/19 08:27 Sodium Chloride (Saline Flush) 10 ml FLUSH ASDIRECTED PRN PRN Reason: Keep Vein Open Succinylcholine Chloride (Succinylcholine In Ns Pf) Confirm Administered Dose 100 mg .ROUTE .STK-MED ONE Stop: 08/26/19 08:29 Succinylcholine Chloride (Succinylcholine In Ns Pf) Confirm Administered Dose 100 mg .ROUTE .STK-MED ONE Stop: 08/26/19 08:31
[2019-08-28 13:11] VITALS: BP 112/54; PULSE 83
== END 2019-08-28 15:10 | disposition home or self-care (01) | DRG 787 ==
LOC: UNDOADMIN 08:22 → JD.OB 08:22 → UNDODISIN 08-28 15:10
PROVIDERS: ADMIT Obstetrics & Gynecology; ATTEND Obstetrics & Gynecology
PROC: 10D00Z1 Extraction of Products of Conception, Low, Open Approach (ICD-10-PCS; principal; 2019-08-26)
PROC: 3E02340 Introduction of Influenza Vaccine into Muscle, Percutaneous Approach (ICD-10-PCS; 2019-08-27)
DX: O45.93 Premature separation of placenta, unspecified, third trimester (principal); D62 Acute posthemorrhagic anemia; O99.02 Anemia complicating childbirth; Z37.0 Single live birth; Z3A.36 36 weeks gestation of pregnancy; Z23 Encounter for immunization
CPT/HCPCS: 01961; 36415; 59025; 85025; 86850; 86900; 86901; 90686; A9270-GY; J0330; J0690; J1170; J1885; J2250; J2270; J2405; J2590; J2704; J2765; J3010; J3490; J7120; J7121

== ENCOUNTER 2021-03-04 18:54 | Emergency (ER) | payer MEDICAID, SELFPAY ==
[2021-03-04 19:03] VITALS: BP 140/90; PULSE 134
--- NOTE | 2021-03-04 19:23 | EDM.PDOC ---
ED HPI GENERAL MEDICAL PROBLEM - General Chief Complaint: Fever Stated Complaint: BODY ACHES,HEADACHE X3,TEMP 104.7 Time Seen by Provider: 03/04/21 19:06 Source of Information: Reports: Patient History Limitations: Reports: No Limitations - History of Present Illness INITIAL COMMENTS - FREE TEXT/NARRATIVE: Ms. Damon is a very pleasant 30-year-old woman who now presents the ED stating that she has had 3 days of a subjective fever, with a headache and generalized body aches. Her temperature was measured at 104 degrees tonight at the [facility] skilled [facility], where she is staying, therefore she was directed here for evaluation. She denies recent cough, dyspnea, abdominal pain, nausea, vomiting, watery diarrhea, or urinary symptoms. The patient has not take any xcst-die-plnmjak or home remedies over the past few days. Here in the ED, the patient is initially found to be tachycardic at 134 bpm, with a fever of 103.1 degrees and an oxygen saturation of 94% on room air. She appears to be comfortable, in no acute distress. Prior to 3 days ago, the patient denies having a recent fever, chills, sore throat, ear pain, nasal or sinus congestion, cough, dyspnea, chest pain, pa lpitations, nausea, vomiting, constipation, diarrhea, abdominal pain, urinary symptoms, recent weight gain or weight loss, recent bloody bowel movements or black bowel movements, recent joint aches, headaches, or rashes. The patient's PCP is Dr. Marlin Killian. She has not received a COVID vaccination. Headache Pain Score (Numeric/FACES): 10 - Related Data Allergies Allergy/AdvReac Type Severity Reaction Status Date / Time No Known Allergies Allergy Verified 03/04/21 19:03 Home Meds: Home Meds . [No Known Home Meds] 03/04/21 [History] Past Medical History Cardiovascular History: Reports: Hypertension Respiratory History: Reports: Asthma (suspected, not PFT-tested) Endocrine/Metabolic History: Reports: Obesity/BMI 30+ - Past Surgical History Female Surgical History: Reports: Section (x 2) Social & Family History - Tobacco Use Tobacco Use Status *Q: Never Tobacco User Second Hand Smoke Exposure: No - Caffeine Use Caffeine Use: Reports: Coffee, Soda - Alcohol Use Alcohol Use History: Yes Alcohol Use Frequency: Socially - Recreational Drug Use Recreational Drug Use: No - Living Situation & Occupation Living situation: Reports: Single, Other ([facility]) Occupation: Unemployed ED ROS GENERAL - Review of Systems Review Of Systems: Comprehensive ROS is negative, except as noted in HPI. ED EXAM, GENERAL - Physical Exam Exam: See Below Exam Limited By: No Limitations General Appearance: Alert, WD/WN, No Apparent Distress Eye Exam: Bilateral Eye: EOMI, Normal Inspection Ears: Normal External Exam, Hearing Grossly Normal Nose: Normal Inspection Throat/Mouth: Normal Inspection, Normal Lips, Normal Voice, No Airway Compromise Head: Atraumatic, Normocephalic Neck: Normal Inspection, Full Range of Motion Respiratory/Chest: No Respiratory Distress, Lungs Clear, Normal Breath Sounds, No Accessory Muscle Use. No: Decreased Breath Sounds, Crackles, Rhonchi, Wheezing, Stridor, Prolonged Expiration Cardiovascular: Normal Peripheral Pulses, Regular Rate, Rhythm, No Edema, No Gallop, No JVD, No Murmur, No Rub Peripheral Pulses: 3+: Radial (L), Radial (R) GI/Abdominal: Normal Bowel Sounds, Soft, Non-Tender, No Organomegaly, No Distention, No Abnormal Bruit, No Mass Back Exam: Normal Inspection, Full Range of Motion, NT Extremities: Normal Inspection, Normal Range of Motion, No Pedal Edema, Normal Capillary Refill Neurological: Alert, Oriented, Normal Cognition, No Motor/Sensory Deficits Psychiatric: Normal Affect Skin Exam: Warm, Dry, Intact, Normal Color, No Rash Course - Vital Signs Last Recorded V/S: Last Vital Signs Temp 37.1 C 03/04/21 19:01 Pulse 134 H 03/04/21 19:01 Resp 16 03/04/21 19:01 BP 140/90 03/04/21 19:01 Pulse Ox 94 L 03/04/21 19:01 - Orders/Labs/Meds Orders: Active Orders 24 hr Category Date Time Status Chest 1V Frontal [CR] Stat Exams 03/04/21 19:17 Taken BLOOD CULTURE [MREF] Stat Lab 03/04/21 19:40 Received BLOOD CULTURE [MREF] Stat Lab 03/04/21 19:48 Received Blood Culture x2 Reflex Set [OM.PC] Stat Oth 03/04/21 19:18 Ordered Labs: Laboratory Tests 03/04/21 03/04/21 03/04/21 Range/Units 19:18 19:18 19:18 WBC 11.88 H (3.98-10.04) K/mm3 RBC 5.10 (3.98-5.22) M/mm3 Hgb 15.0 D (11.2-15.7) gm/dl Hct 45.7 H (34.1-44.9) % MCV 89.6 (79.4-94.8) fl MCH 29.4 (25.6-32.2) pg MCHC 32.8 (32.2-35.5) g/dl RDW Std Deviation 43.0 (36.4-46.3) fL Plt Count 191 (182-369) K/mm3 MPV 10.5 (9.4-12.3) fl Neutrophils % (Manual) 69 H (40-60) % Band Neutrophils % 0 (0-10) % Lymphocytes % (Manual) 24 (20-40) % Atypical Lymphs % 0 % Monocytes % (Manual) 7 (2-10) % Eosinophils % (Manual) 0 L (0.7-5.8) % Basophils % (Manual) 0 L (0.1-1.2) Platelet Estimate Adequate RBC Morph Comment Normal Sodium 138 (136-145) mEq/L Potassium 3.7 (3.5-5.1) mEq/L Chloride 101 (98-107) mEq/L Carbon Dioxide 24 (21-32) mEq/L Anion Gap 16.7 H (5-15) BUN 11 (7-18) mg/dL Creatinine 1.0 (0.55-1.02) mg/dL Est Cr Clr Drug Dosing 71.03 mL/min Estimated GFR (MDRD) > 60 (>60) mL/min BUN/Creatinine Ratio 11.0 L (14-18) Glucose 90 (70-99) mg/dL Lactic Acid 0.7 (0.4-2.0) mmol/L Calcium 8.9 (8.5-10.1) mg/dL Total Bilirubin 1.5 H (0.2-1.0) mg/dL AST 14 L (15-37) U/L ALT 24 (14-59) U/L Alkaline Phosphatase 90 (46-116) U/L C-Reactive Protein 15.2 H* (<1.0) mg/dL Total Protein 8.0 (6.4-8.2) g/dl Albumin 3.6 (3.4-5.0) g/dl Globulin 4.4 gm/dL Albumin/Globulin Ratio 0.8 L (1-2) SARS-CoV-2 RNA ([facility]) (NEGATIVE) 03/04/21 Range/Units 19:20 WBC (3.98-10.04) K/mm3 RBC (3.98-5.22) M/mm3 Hgb (11.2-15.7) gm/dl Hct (34.1-44.9) % MCV (79.4-94.8) fl MCH (25.6-32.2) pg MCHC (32.2-35.5) g/dl RDW Std Deviation (36.4-46.3) fL Plt Count (182-369) K/mm3 MPV (9.4-12.3) fl Neutrophils % (Manual) (40-60) % Band Neutrophils % (0-10) % Lymphocytes % (Manual) (20-40) % Atypical Lymphs % % Monocytes % (Manual) (2-10) % Eosinophils % (Manual) (0.7-5.8) % Basophils % (Manual) (0.1-1.2) Platelet Estimate RBC Morph Comment Sodium (136-145) mEq/L Potassium (3.5-5.1) mEq/L Chloride (98-107) mEq/L Carbon Dioxide (21-32) mEq/L Anion Gap (5-15) BUN (7-18) mg/dL Creatinine (0.55-1.02) mg/dL Est Cr Clr Drug Dosing mL/min Estimated GFR (MDRD) (>60) mL/min BUN/Creatinine Ratio (14-18) Glucose (70-99) mg/dL Lactic Acid (0.4-2.0) mmol/L Calcium (8.5-10.1) mg/dL Total Bilirubin (0.2-1.0) mg/dL AST (15-37) U/L ALT (14-59) U/L Alkaline Phosphatase (46-116) U/L C-Reactive Protein (<1.0) mg/dL Total Protein (6.4-8.2) g/dl Albumin (3.4-5.0) g/dl Globulin gm/dL Albumin/Globulin Ratio (1-2) SARS-CoV-2 RNA ([facility]) Negative (NEGATIVE) - Re-Assessments/Exams Free Text/Narrative Re-Assessment/Exam: 03/04/21 19:20 As above, the patient has had 3 days of a subjective fever, with a headache and body aches, and then was found to have a temperature of 104 degrees at the woman's skilled nursing just shortly prior to coming to the ED. No other symptoms, such as a cough or dyspnea, abdominal pain, nausea, vomiting, constipation, diarrhea, or urinary symptoms. Here in the ED, she is found to be tachycardic and febrile at 103.1 degrees. Her oxygen saturation is also a little low for her age, at 94% on room air. Her physical exam is completely unremarkable. I have ordered a work-up that includes several blood tests, 2 sets of blood cultures, a swab for the SARS-CoV-2 virus, and a portable chest x-ray. 03/04/21 20:25 Portable chest radiograph appears to be grossly normal. The cardiac silhouette is within normal limits. No pulmonary vascular congestion. No pleural effusions seen on this AP view. No focal infiltrate. No pneumothorax. Formal read per the Radiologist pending. 03/04/21 20:53 The patient's CBC is remarkable for mild leukocytosis of 11.88, but with 0% bandemia, and the remainder of her CBC being unremarkable. Her CMP is remarkable for a TBil mildly elevated at 1.5, with the remainder of her CMP being unremarkable. Her lactic acid level is within normal limits at 0.7. Her CRP is elevated at 15.2. Her swab for the SARS-CoV-2 virus is negative. 03/04/21 21:00 Test results discussed with the patient. As above, today's work-up is remarkable for an elevated CRP, but nothing specific that would indicate a bacterial infection. She is likely suffering from a viral infection, therefore I am not recommending antibiotics at this time. She may take [id number] Tylenol or ibuprofen as needed for discomfort or fever. Departure - Departure Time of Disposition: 21:01 Disposition: Home, Self-Care 01 Condition: Good Clinical Impression: Fever, Viral illness - Discharge Information *PRESCRIPTION DRUG MONITORING PROGRAM REVIEWED*: Not Applicable *COPY OF PRESCRIPTION DRUG MONITORING REPORT IN PATIENT TIMUR: Not Applicable Instructions: Fever, Adult, Viral Illness, Adult Referrals: Kiedrowski,Marlin, MD [Primary Care Provider] - Forms: ED Department Discharge Additional Instructions: You were seen in the emergency room for 3 days of feeling feverish, with a headache and body aches, then being found to have a temperature of 100.4 degrees this evening. Work-up in the ER included several blood tests, 2 sets of blood cultures, a swab for the SARS-CoV-2 virus, and a chest x-ray. Your CRP, a measure of inflammation, was found to be elevated at 15.2, indicating that there is some inflammatory process going on, however, the remainder of your work-up was unremarkable. Based on your history, physical exam, and ER tests, you appear to be suffering from a viral illness. As discussed, antibiotics were not felt to be indicated at this time. Stay adequately hydrated. You may take [id number] Tylenol or ibuprofen as needed for discomfort, however, if you are not uncomfortable, we recommend that you do not treat a fever. If your symptoms persist, please follow-up with your PCP, Dr. Marlin Singer. If your symptoms get worse, please do not hesitate to return to the ER. Sepsis Event Note (ED) - Evaluation Sepsis Screening Result: Possible Sepsis Risk - Focused Exam Vital Signs: Vital Signs Temp Temp Pulse Resp BP Pulse Ox 03/04/21 19:01 39.5 C H 37.1 C 134 H 16 140/90 94 L - My Orders Last 24 Hours: My Active Orders 03/04/21 19:17 Chest 1V Frontal [CR] Stat 03/04/21 19:18 Blood Culture x2 Reflex Set [OM.PC] Stat 03/04/21 19:40 BLOOD CULTURE [MREF] Stat 03/04/21 19:48 BLOOD CULTURE [MREF] Stat - Assessment/Plan Last 24 Hours: My Active Orders 03/04/21 19:17 Chest 1V Frontal [CR] Stat 03/04/21 19:18 Blood Culture x2 Reflex Set [OM.PC] Stat 03/04/21 19:40 BLOOD CULTURE [MREF] Stat 03/04/21 19:48 BLOOD CULTURE [MREF] Stat
--- NOTE | 2021-03-05 09:05 | CR ---
Chest: Portable view of the chest was obtained. Comparison: No prior chest imaging is available. Heart size and mediastinum are normal. Lungs are clear with no acute parenchymal change. No acute osseous abnormality is appreciated. Impression: 1. Nothing acute is seen on portable chest x-ray. Diagnostic code #1
== END 2021-03-04 21:45 | disposition home or self-care (01) ==
LOC: JD.ED 18:54
DX: B34.9 Viral infection, unspecified (principal); E66.9 Obesity, unspecified; I10 Essential (primary) hypertension; Z20.822 Contact with and (suspected) exposure to COVID-19; Z68.31 Body mass index [BMI] 31.0-31.9, adult
CPT/HCPCS: 36415; 71045; 71045-26; 80053; 83605; 85007; 85027; 86140; 87040; 99283; 99284-25; U0002